=== PATIENT | female | born 1985 | race Caucasian/White ===

== ENCOUNTER 2017-08-14 11:49 | Inpatient (IN) | payer MEDICAID ==
[~2017-08-14] VITALS: Ht 154.9 cm; Wt 59.1 kg
[2017-08-14] MEDS ORDERED: AMIODARONE INJ 150 MG in DEXTROSE 5% IN WATER 100ML INJ 100 ML IV ONE ×2 (12:28)
[2017-08-14] MEDS ORDERED: AMIODARONE INJ 150 MG in DEXTROSE 5% IN WATER 100ML INJ 97 ML IV ONE ×2 (12:28)
[2017-08-14] MEDS ORDERED: ACETAMINOPHEN 325 MG TAB PO PRN (12:30)
[2017-08-14] MEDS ORDERED: LACTULOSE SYRUP 20 GM/30 ML CUP PO PRN (12:30)
[2017-08-14] MEDS ORDERED: SENNOSIDES 8.6 MG TAB PO PRN (12:30)
[2017-08-14] MEDS ORDERED: SODIUM CHLORIDE 0.9% FLUSH 10 ML FLUSH IV FLUSH PRN (12:30)
[2017-08-14] MEDS ORDERED: NALOXONE HCL 0.4 MG/ML AMP IV PUSH PRN (12:30)
[2017-08-14] MEDS ORDERED: BISACODYL 10 MG SUPP RECTAL PRN (12:30)
[2017-08-14] MEDS ORDERED: MAGNESIUM HYDROXIDE SUSP 30 ML CUP PO PRN (12:30)
[2017-08-14] MEDS ORDERED: AMIODARONE INJ 450 MG in DEXTROSE 5% IN WATE(EXCEL) INJ 241 ML IV PRN ×2 (12:38)
[2017-08-14] MEDS ORDERED: Vancomycin Consult Pharmacy 1 EA OTHER SCH (12:45)
[2017-08-14] MEDS ORDERED: VANCOMYCIN 1 GM/200 ML INJ 200 ML IV SCH (12:45)
[2017-08-14] MEDS: ENOXAPARIN SODIUM 40 MG/0.4 ML SYRINGE SQ SCH (13:00)
[2017-08-14 14:00] VITALS: BP 144/123; PULSE 51; RESP 20; TEMP 97.7; O2SAT 100
[2017-08-14] MEDS ORDERED: PROPOFOL 500 MG/50 ML INJ 50 ML ONE (14:10)
--- NOTE | 2017-08-14 14:19 | HHI.HP ---
[facility] No Primary Care Physician Admission Diagnosis Diagnoses: (1) V-tach Diagnosis: Principal (2) SIRS (systemic inflammatory response syndrome) Diagnosis: Principal (3) Intractable nausea and vomiting Diagnosis: Principal Chief Complaint: nausea, vomiting, palpitations Travel History International Travel<30 Days: No Contact w/Intl Traveler <30 Da: No Traveled to Known Affected Are: No Sepsis Criteria SIRS Criteria (2 or more): RR > 20 or PaCO2 < 32, WBC > 93283, < 4000 or > 10 % bands Severe Sepsis (+one): Lactate >2 Criteria Outcome: Meets SIRS criteria History of Present Illness Patient is a 31-year-old female with past medical history of GERD and history of Xanax use as a teenager, who presented to the ER with complaints of intractable nausea, palpitations or dizziness sounds without. Patient is found with increased QT interval and noted with V. tach while in the emergency room. She received a bolus of amiodarone. Patient instructed to the [facility] for further evaluation. Cardiology was contacted Dr. Rodriguez. The patient is still no associated, with dry heaves and she complains of severe epigastric pain. Epigastric pain is nonradiating. Denies having any chest pain or palpitations at this time. No fever or chills. No cough. Denies any suprapubic pain or urinary complaints. Says the only medication that she is taking his omeprazole [id number]-ltqivhu for GERD. However she stopped taking GERD medications 3 months ago. Past Family Social History Past Medical History GERD Past Surgical History Allergies: Coded Allergies: No Known Allergies (Unverified , 08/14/17) Family History Maternal grandmother with stroke Heart problems [place] paternal grandfather Social History Tobacco use Smoking half a pack to 1 pack a day since the age of 13 Marijuana use daily last use night, usually 3 x per day. Denies any other illicit drug use Occasional alcohol use, beer once in a while Physical Exam Physical Exam GENERAL: This is a well-nourished, well-developed patient, in no apparent distress. SKIN: No rashes, ecchymoses or lesions. Cool and dry. HEAD: Atraumatic. Normocephalic. No temporal or scalp tenderness. EYES: Pupils equal round and reactive. Extraocular motions intact. No scleral icterus. No injection or drainage. ENT: Nose without bleeding, purulent drainage or septal hematoma. Throat without erythema, tonsillar hypertrophy or exudate. Uvula midline. Airway patent. NECK: Trachea midline. No JVD or lymphadenopathy. Supple, nontender, no meningeal signs. CARDIOVASCULAR: Regular rate and rhythm without murmurs, gallops, or rubs. RESPIRATORY: Clear to auscultation. Breath sounds equal bilaterally. No wheezes , rales, or rhonchi. GASTROINTESTINAL: Abdomen soft, non-tender, nondistended. No hepato-splenomegaly , or palpable masses. No guarding. MUSCULOSKELETAL: Extremities without clubbing, cyanosis, or edema. No joint tenderness, effusion, or edema noted. No calf tenderness. Negative Homans sign bilaterally. NEUROLOGICAL: Awake and alert. Cranial nerves II through XII intact. Motor and sensory grossly within normal limits. Five out of 5 muscle strength in all muscle groups. Normal speech. Caprini VTE Risk Assessment Caprini VTE Risk Assessment: Mod/High Risk (score >= 2) Caprini Risk Assessment Model Point Value = 1 Point Value = 2 Point Value = 3 Point Value = 5 Age 41-60 Minor surgery BMI > 25 kg/m2 Swollen legs Varicose veins or History of unexplained or recurrent spontaneous Oral contraceptives or hormone replacement Sepsis (< 1 month) Serious lung disease, including pneumonia (< 1 month) Abnormal pulmonary function Acute myocardial infarction Congestive heart failure (< 1 month) History of inflammatory bowel disease Medical patient at bed rest Age 61-74 Arthroscopic surgery Major open surgery (> 45 min) Laparoscopic surgery (> 45 min) Malignancy Confined to bed (> 72 hours) Immobilizing plaster cast Central venous access Age >= 75 History of VTE Family history of VTE Factor V Leiden Prothrombin [id number] Lupus anticoagulant Anticardiolipin antibodies Elevated serum homocysteine Heparin-induced thrombocytopenia Other congenital or acquired thrombophilia Stroke (< 1 month) Elective arthroplasty Hip, pelvis, or leg fracture Acute spinal cord injury (< 1 month) Prophylaxis Regimen Total Risk Factor Score Risk Level Prophylaxis Regimen 0-1 Low Early ambulation 2 Moderate Order ONE of the following: *Sequential Compression Device (SCD) *Heparin 5000 units SQ BID 3-4 Higher Order ONE of the following medications: *Heparin 5000 units SQ TID *Enoxaparin/Lovenox 40 mg SQ daily (WT < 150 kg, CrCl > 30 mL/min) *Enoxaparin/Lovenox 30 mg SQ daily (WT < 150 kg, CrCl > 10-29 mL/min) *Enoxaparin/Lovenox 30 mg SQ BID (WT < 150 kg, CrCl > 30 mL/min) AND/OR *Sequential Compression Device (SCD) 5 or more Highest Order ONE of the following medications: *Heparin 5000 units SQ TID (Preferred with Epidurals) *Enoxaparin/Lovenox 40 mg SQ daily (WT < 150 kg, CrCl > 30 mL/min) *Enoxaparin/Lovenox 30 mg SQ daily (WT < 150 kg, CrCl > 10-29 mL/min) *Enoxaparin/Lovenox 30 mg SQ BID (WT < 150 kg, CrCl > 30 mL/min) AND *Sequential Compression Device (SCD) Assessment and Plan Problem List: (1) Intractable nausea and vomiting ICD Code: R11.2 - Nausea with vomiting, unspecified (2) SIRS (systemic inflammatory response syndrome) ICD Code: R65.10 - Systemic inflammatory response syndrome (SIRS) of non- infectious origin without acute organ dysfunction (3) V-tach ICD Code: I47.2 - Ventricular tachycardia Assessment and Plan 31-year-old female with Prolongation of QT/V. tach GERD Epigastric Abdominal pain Intractable nausea SIRS criteria on admission with leukocytosis, lactic acidosis, tachycardia Syncope Tobaccoism and marijuana use counselled. With history of depression as a teenager with use of Xanax and abuse of Xanax at that time. Received bolus of amiodarone while in the emergency room in [place]. Started on amiodarone drip Monitor on telemetry Admitted to CIC or ICU floor for close monitoring cloud consultant, Dr. Rodriguez. Consulting EP doctor Brooks for further evaluation Urine cultures, blood cultures are pending UA and chest x-ray reviewed and negative Monitor lactic acid per sepsis protocol Consult infectious disease for further recommendations Pain management Ativan for nausea as she would prolong QT interval and V. tach Consult dispensary attendant DVT ppx scd/teds/ Critical care time> 35 minutes Discussed Condition With Patient, nurse, family at bedside, ED physician, Dr Nguyen cardiology, Dr. Holm dispensary attendant Physician Certification 2 Midnight Certification Type: Admission for Inpatient Services Order for Inpatient Services The services are ordered in accordance with Medicare regulations or non- Medicare payer requirements, as applicable. In the case of services not specified as inpatient-only, they are appropriately provided as inpatient services in accordance with the 2-midnight benchmark. Estimated LOS (days): 3 days is the estimated time the patient will need to remain in the hospital, assuming treatment plan goals are met and no additional complications. Post-Hospital Plan: Home Yahaira Means MD Aug 14, 2017 14:19
[2017-08-14] MEDS: HYDROmorphone HCL PF 2 MG/ML VIAL IV PUSH PRN ×2 (14:32→20:21)
--- NOTE | 2017-08-14 14:46 | PD.ID.CON ---
History of Present Illness Service ID Consult Requested By Dr Means Reason for Consult leukocytosis Primary Care Physician No Primary Care Physician Diagnoses: History of Present Illness 31 yo patient presented with few days of constipation, abdominalm pain and on presentation was noed to have QT prolongation and torsades du pointes She reports exposure to C.diff thru family memeber (daughter), no abx exposure fore yrs Her WBC 20K, no fever No e/o UTI, PNA + bowell wall thickening on CT, but no other acute findings She also has evelvated lactate She was started on broad spectrum abx She uses MJ, denies other substance use Review of Systems Except as stated in HPI: all other systems reviewed are Neg Past Family Social History Allergies: Coded Allergies: No Known Allergies (Unverified , 08/14/17) Active Ordered Medications Medications where reviewed in EMR Antibiotics Include: zosyn vanco Physical Exam Physical Exam CONSTITUTIONAL/GENERAL: This is an adequately nourished patient, in no apparent distress. TUBES/LINES/DRAINS: SKIN: No jaundice, rashes, or lesions. . Skin temperature appropriate. Not diaphoretic. HEAD: Atraumatic. Normocephalic. EYES: Pupils equal and round and reactive. Extraocular motions intact. No scleral icterus. No injection or drainage. Fundi not examined. ENT: Hearing grossly normal. Nose without bleeding or purulent drainage. Throat without visible erythema, exudates, masses, or lesions. NECK: Trachea midline. Supple, nontender. CARDIOVASCULAR: Regular rate and rhythm without murmurs, gallops, or rubs. No JVD. Peripheral pulses symmetric. RESPIRATORY/CHEST: Symmetric, unlabored respirations. Clear to auscultation. Breath sounds equal bilaterally. No wheezes, rales, or rhonchi. GASTROINTESTINAL: Abdomen soft, mildly tender LUQ, nondistended. No hepato- splenomegaly, or palpable masses. No guarding. Bowel sounds present. GENITOURINARY: Without palpable bladder distension. MUSCULOSKELETAL: Extremities without clubbing, cyanosis, or edema. No joint tenderness or effusion noted. No calf tenderness. No mottling or clubbing. LYMPHATICS: No palpable cervical or supraclavicular adenopathy. NEUROLOGICAL: Awake and alert. Motor and sensory grossly within normal limits. Follows commands. Cognitively sharp. Moves all extremities. PSYCHIATRIC: No obvious anxiety/depression. no apparent hallucinations or other psychotic thought process. Laboratory Laboratory Tests Test 08/14/17 14:30 Imaging Last Impressions Head CT 08/14/17 0000 Signed Impressions: Service Date/Time: Monday, August 14, 2017 15:04 - CONCLUSION: Normal examination for a patient of this age. Gabe Delgado MD Assessment and Plan Assessment and Plan Ventricuklkar arrhythmia, TdP Lactic acidosis, ileus, leukocytosis and reported C.diff exposure with colitis on CT - clinical picture is suspicious for C.diff though colitis can be due to other pathology dc broad spectriumn abx start oral vanco chk stool for C.diff Discussed Condition With RN Gerri Sánchez MD Aug 14, 2017 14:46
[2017-08-14 14:52] LABS: PHOSPHORUS 1.1 MG/DL (2.5-4.9)
[2017-08-14 15:00] VITALS: BP 137/68
--- NOTE | 2017-08-14 15:14 | RADRPT ---
EXAM DATE/TIME: 08/14/2017 15:04 [place] COMPARISON: No previous studies available for comparison. INDICATIONS : Syncope. RADIATION DOSE: 56.41 CTDIvol (mGy) MEDICAL HISTORY : Seizures. GERD SURGICAL HISTORY : Appendectomy. ENCOUNTER: Initial ACUITY: 1 day PAIN SCALE: 0/10 LOCATION: cranial TECHNIQUE: Multiple contiguous axial images were obtained of the head. Using automated exposure control and adj ustment of the mA and/or kV according to patient size, radiation dose was kept as low as reasonably a chievable to obtain optimal diagnostic quality images. DICOM format image data is available electro nically for review and comparison. FINDINGS: CEREBRUM: The ventricles are normal for age. No evidence of midline shift, mass lesion, hemorrhage or acute in farction. No extra-axial fluid collections are seen. POSTERIOR FOSSA: The cerebellum and brainstem are intact. The 4th ventricle is midline. The cerebellopontine angle i s unremarkable. EXTRACRANIAL: The visualized portion of the orbits is intact. SKULL: The calvaria is intact. No evidence of skull fracture. CONCLUSION: Normal examination for a patient of this age. Gabe Delgado MD on August 14, 2017 at 15:11 Board Certified Radiologist. This report was verified electronically.
[2017-08-14] MEDS ORDERED: AMIODARONE INJ 450 MG in SODIUM CHLOR 0.9% (EXCEL) INJ 241 ML IV PRN (15:30)
[2017-08-14 16:00] VITALS: BP 133/72; PULSE 93; RESP 28; O2SAT 98
[2017-08-14] MEDS ORDERED: VANCOMYCIN INJ 1,250 MG in SODIUM CHLOR 0.9% 250 ML INJ 250 ML IV SCH (16:00)
[2017-08-14] MEDS ORDERED: POTASSIUM CHLORIDE 25 MEQ EFFERVESCENT TAB PO PRN (16:45)
[2017-08-14] MEDS ORDERED: POTASSIUM PHOSPHATE MONOBASIC 500 MG TAB PO PRN (16:45)
[2017-08-14] MEDS ORDERED: MAGNESIUM SULFATE INJ 2 GM in SODIUM CHLORIDE 0.9% INJ 96 ML IV PRN (16:45)
[2017-08-14] MEDS ORDERED: POTASSIUM PHOSPHATE INJ 30 MMOL in SODIUM CHLOR 0.9% 250 ML INJ 250 ML IV PRN (16:45)
[2017-08-14] MEDS ORDERED: POTASSIUM PHOSPHATE MONOBASIC 500 MG TAB PO/TUBE PRN (16:45)
[2017-08-14] MEDS ORDERED: MAGNESIUM OXIDE 400 MG TAB PO PRN (16:45)
[2017-08-14] MEDS ORDERED: MAGNESIUM SULFATE INJ 4 GM in SODIUM CHLORIDE 0.9% INJ 92 ML IV PRN (16:45)
[2017-08-14] MEDS ORDERED: POTASSIUM CHLOR 20 MEQ PREMIX 100 ML IV PRN ×2 (16:45)
[2017-08-14] MEDS ORDERED: SODIUM PHOSPHATE INJ 30 MMOL in SODIUM CHLOR 0.9% 250 ML INJ 250 ML IV ONE (16:45)
[2017-08-14] MEDS ORDERED: SODIUM PHOSPHATE INJ 30 MMOL in SODIUM CHLOR 0.9% 250 ML INJ 240 ML IV PRN (16:45)
[2017-08-14] MEDS ORDERED: POTASSIUM CHLOR 40 MEQ PREMIX 100 ML IV PRN ×2 (16:45)
[2017-08-14 17:00] VITALS: BP 114/98; PULSE 85; RESP 28; O2SAT 98
--- NOTE | 2017-08-14 17:16 | HHI.PR ---
Addendum to Inpatient Note Additional Information Pt seen around 1430 today full note to follow 31 yo admitted for TDP + abd pain/ ileus/ C.diff exposure thru family memeber (daughter), no abx exposure fore yrs WBC 20K No e/o UTI, PNA + bowell wall thickening on CT dc broad spectriumn abx start oral vanco chk stool for C.diff Gerri Perez MD Aug 14, 2017 17:16
[2017-08-14] MEDS: VANCOMYCIN 500 MG VIAL (FOR ORAL USE ONLY) PO SCH ×2 (17:40→21:28)
[2017-08-14] MEDS ORDERED: PIPERACIL-TAZO 4.5 GM PREMIX 100 ML IV SCH (18:00)
[2017-08-14] MEDS ORDERED: ONDANSETRON HCL 4 MG/2 ML VIAL IV PUSH ONE (19:15)
[2017-08-14] MEDS: SODIUM CHLORIDE 0.9% FLUSH 10 ML FLUSH IV FLUSH SCH (19:34)
[2017-08-14] MEDS: DOCUSATE SODIUM 50 MG/SENNA 8.6 MG TAB PO SCH (19:34)
[2017-08-14 20:00] VITALS: BP 106/60; PULSE 69; RESP 30; TEMP 99; O2SAT 96
--- NOTE | 2017-08-14 20:28 | PD.CONS ---
[facility] Service Critical Care Medicine Consult Requested By Dr. Means Reason for Consult management of Torsades Primary Care Physician No Primary Care Physician History of Present Illness This a 31yF with a history of intractable nausea which she states has been a daily occurrance with vomiting at least 3 times a day for 8 years (since her youngest daughter was born). She presents with new-onset epigastric pain along with nausea and vomiting. She states the vomiting has been getting worse and the pain is also worse. She denies diarrhea. denies association with food. Also endorses having syncopal episodes a few times an hour over the last day. she presented to [place] [facility] and was found to have intermittent polymorphic V. Tach with these syncopal episodes. she was given iv magnesium and started on amiodarone in the ER and is transferred to the ICU for further management. Of note, the patient states the only alleviating factor over the last few months for her intractable nausea is a hot bath or shower which she now takes 2 or 3 times a day to relieve her symptoms. In the ER, her electrolytes were wnl. she had a leukocytosis to 20k, a lactate 3.5. trop negative. HCG negative. Cardiology evaluated her and consulted Dr. Brooks with electrophysiology to [facility]. The patient complains of pain as well as nausea and vomiting, and the syncope, but no other symptoms. no other neuro symptoms, including dizziness, fatigue, photophobia. She has been taking over the counter anti-nausea meds and reported taking an enema to help with constipation. denies any other meds. endorses daily marijuana use x 8 years, at least once a day and sometimes more. Review of Systems Constitutional: DENIES: Diaphoretic episodes, Fatigue, Fever, Chills, Night Sweats Endocrine: DENIES: Heat/cold intolerance Eyes: DENIES: Blurred vision, Diplopia, Eye pain, Vision loss, Photosensitivity , Double Vision Ears, nose, mouth, throat: DENIES: Hearing loss, Vertigo, Throat pain, Running Nose, Epistaxis Respiratory: DENIES: Apneas, Cough, Snoring, Wheezing, Hemoptysis, Sputum production, Shortness of breath Cardiovascular: COMPLAINS OF: Syncope, DENIES: Chest pain, Palpitations, Dyspnea on Exertion, PND, Lower Extremity Edema, Orthopnea, Claudication Gastrointestinal: COMPLAINS OF: Abdominal pain, Nausea, Vomiting, DENIES: Black stools, Bloody stools, Constipation, Diarrhea Musculoskeletal: DENIES: Muscle aches, Joint Swelling, Back pain Hematologic/lymphatic: DENIES: Bruising Neurologic: DENIES: Headache, Localized weakness, Paresthesias, Seizures Psychiatric: DENIES: Anxiety, Confusion Past Family Social History Allergies: Coded Allergies: No Known Allergies (Unverified , 08/14/17) Past Medical History GERD intractable nausea/vomiting x 8 years since her youngest daughter was born (self -medicated, never sought medical attention) Past Surgical History appendectomy Reported Medications none. takes over the counter nausea medicine took OTC enema x 1 yesterday (unknown brand or type) Active Ordered Medications See MAR Family History Maternal grandmother with stroke Heart problems [place] paternal grandfather both > 70 yrs old. Social History Tobacco use Smoking half a pack to 1 pack a day since the age of 13 Marijuana use daily, once or more per day x at least 10 years. Physical Exam Vital Signs Vital Signs Date Time Temp Pulse Resp B/P (MAP) Pulse Ox O2 Delivery O2 Flow Rate FiO2 08/14/17 20:00 99.0 69 30 106/60 (75) 96 08/14/17 20:00 69 08/14/17 17:00 85 28 114/98 (103) 98 08/14/17 16:00 93 08/14/17 16:00 93 28 133/72 (92) 98 08/14/17 15:00 137/68 (91) 08/14/17 14:00 97.7 51 20 144/123 (130) 100 08/14/17 14:00 51 Physical Exam GENERAL: Young female, lying in bed, in severe distress, dry heaving during exam HEENT: Normocephalic. Atraumatic. Pupils equal, round, reactive, conjugate. Mucous membranes are dry NECK: Trachea is midline. There is no JVD. CHEST: Equal chest rise. On room air. SPO2 100% CARDIOVASCULAR: Normal rate, regular rhythm. Sinus by telemetry during my exam ABDOMEN: Soft, tender in the epigastrium. No rebound. No guarding. No perineal irritation. Negative heel tap. Nondistended. MUSCULOSKELETAL: Pulses 2+. No peripheral edema. NEUROLOGICAL: Patient had 3 episodes of syncope while I was evaluating her. These were not associated with any changes on the EKG. The remainder the patient's neurologic exam is normal. These syncopal episodes lasted for less than 15 seconds, and the patient startled herself awake and began talking again. During that time there is no rhythmic movements to suggest ictal activity. Laboratory Laboratory Tests Test 08/14/17 14:30 Phosphorus Level 1.1 Troponin I LESS THAN 0.02 Lipase 111 Imaging Last Impressions Head CT 08/14/17 0000 Signed Impressions: Service Date/Time: Monday, August 14, 2017 15:04 - CONCLUSION: Normal examination for a patient of this age. Gabe Delgado MD Assessment and Plan Assessment and Plan Assessment: 31-year-old female with chronic long-standing history of nausea and vomiting times at least 8 years who presents with worsening epigastric pain and in the emergency department was found to have intermittent torsades. She is now in sinus rhythm, although her nausea persists. Her clinical story is very suggestive of cyclical vomiting syndrome secondary to chronic marijuana use. It is possible that her chronic nausea and vomiting his lead to allegedly abnormalities and dehydration which could lead to torsades. It is also possibility that her odta-glf-paqhzmy antinausea medicine contains a QT prolonging agent which could further worsen torsades. I agree with a electrophysiology consultation. In addition we will consult GI to help with her diagnosis of chronic nausea and vomiting. Unfortunately, it is very difficult to control her nausea as almost all antinausea meds are correct QT prolonging agents. We will stick with Ativan IV and if needed very small doses of Zofran in a monitored setting under telemetry. Agree with admitting to ICU and we will monitor closely. Unclear what the single episode from, but they do not appear to be neurologic in origin. We'll get EEG to see if it correlates with any ictal activity. We'll get neurology input as well. Polymorphic V. Tach - mgso4 - daily electrolytes - ivf - EP consultation - cardiology consultation - telemetry - avoid QT prolonging agents Chronic intractable nausea/vomiting with acute abdominal pain - consult GI - ativan prn for nausea - very judicious use of zofran iv prn - most anti-emetics are QT prolonging. until EP evaluates, will hold on further anti-emetics. - possible cyclical vomiting syndrome secondary to chronic marijuana use. Syncopal Episodes - appears to be more psychogenic in origin - some of these correlate with torsades (organic etiology), but a number of these episodes last < 15 seconds and do not correlate - EEG - neuro consult - may need psych consult if no other etiology is found Agree with admitting to ICU. will closely monitor. Camilo Stover MD Aug 14, 2017 20:28
[2017-08-14 22:00] VITALS: PULSE 56
[2017-08-15] VITALS (16 sets, daily range): BP systolic 109–136; BP diastolic 59–93; PULSE 53–94; RESP 19–40; TEMP 98–99; O2SAT 97–99
[2017-08-15] MEDS: HYDROmorphone HCL PF 2 MG/ML VIAL IV PUSH PRN ×3 (03:52→20:15)
[2017-08-15] MEDS: VANCOMYCIN 500 MG VIAL (FOR ORAL USE ONLY) PO SCH ×4 (03:52→20:16)
[2017-08-15] MEDS: DOCUSATE SODIUM 50 MG/SENNA 8.6 MG TAB PO SCH ×2 (07:46→20:14)
--- NOTE | 2017-08-15 09:06 | MB ---
cc: SONIA STINSON M.D. DATE OF CONSULTATION: 08/14/2017. REASON FOR CONSULTATION: Electrophysiology consult for ventricular tachycardia. HISTORY OF PRESENT ILLNESS: Mrs. Dowd is a 31-year-old female with no history of family with sudden . She smokes a pack of cigarettes a day for the past 18 years. She uses marijuana occasionally. She drinks a beer occasionally. She was having constipation. She decided to take some laxative last night and drank a lot of water. She woke up in the middle of the night with dry heaves. This morning around 7:00, she called a neighbor and decided to come to the emergency room. During hospitalization, she was having dizziness and near syncope. Telemetry showed episodes of wide complex tachyarrhythmia, possible torsades. Subsequently she was transferred to this center. She was put on telemetry. Electrolyte replacement was initiated. I was consulted for evaluation and management. The chart was reviewed. The patient was evaluated. ALLERGIES: NONE. SOCIAL HISTORY: As mentioned before, she has smoked a pack of cigarettes a day for the past thirteen years. FAMILY HISTORY: Noncontributory to her current medical condition. MEDICATIONS: At home she was on no medications. Currently she is on: 1. Potassium. 2. She is on phosphorus. 3. She is on magnesium. 4. Vancomycin was initiated. 5. She is on amiodarone if necessary. 6. Lovenox 40 milligrams subcutaneous was given. REVIEW OF SYSTEMS: Currently she refers feeling better. She had abdominal pain that was worse than by her own account than when she was in labor for seven hours. No vomiting currently. No fever. PHYSICAL EXAMINATION: GENERAL: Alert, fully oriented, pleasant in bed. VITAL SIGNS: Her blood pressure is 114/98, pulse 85, respiratory rate 18. LUNGS: Ventilated. CARDIOVASCULAR: S1-S2. Regular. ABDOMEN: Abdomen soft, no mass. No bruits. No pain on palpation. EXTREMITIES: No edema. EKGS: Electrocardiogram is not available. Telemetry shows sinus rhythm. LABS: Hemoglobin is 15.1, white blood cells 20. Potassium is 3.7, creatinine 1.1, magnesium is 1.7. Troponin less than 0.02. TSH is 2.79. INR 1.1. ASSESSMENT AND RECOMMENDATIONS: Mrs. Dowd refers multiple episodes of dizziness and syncope. There were short bursts of wide complex tachyarrhythmia. Her Q-T is around 460. There is no family history of coronary artery disease. There is no family history of sudden . The issue may be more because of her electrolyte imbalance than intrinsic to the heart. At this point, my recommendation is to continue observation. She will need an echocardiogram to evaluate wall motion and valvular function. If there is an episodes of torsades during this weekend, then I will consider a device. If not, the recommendation is an electrophysiology study Thursday morning or afternoon. The case was extensively discussed with her. I will closely monitor her during the hospitalization. Sonia Stinson MD /[place] /6:06 PM /8:39 AM
[2017-08-15] MEDS ORDERED: ALUMINUM/MAGNESIUM/SIMETH 30 ML CUP PO ONE (09:15)
[2017-08-15] MEDS ORDERED: LIDOCAINE VISCOUS 2% SOLN 15 ML UDC PO ONE (09:15)
--- NOTE | 2017-08-15 09:15 | HHI.CCPN ---
Subjective Remarks/Hospital Course Hospital Course: This a 31yF with a history of intractable nausea which she states has been a daily occurrance with vomiting at least 3 times a day for 8 years (since her youngest daughter was born). She presents with new-onset epigastric pain along with nausea and vomiting. She states the vomiting has been getting worse and the pain is also worse. She denies diarrhea. denies association with food. Also endorses having syncopal episodes a few times an hour over the last day. she presented to [place] [facility] and was found to have intermittent polymorphic V. Tach with these syncopal episodes. she was given iv magnesium and started on amiodarone in the ER and is transferred to the ICU for further management. Of note, the patient states the only alleviating factor over the last few months for her intractable nausea is a hot bath or shower which she now takes 2 or 3 times a day to relieve her symptoms. In the ER, her electrolytes were wnl. she had a leukocytosis to 20k, a lactate 3.5. trop negative. HCG negative. Cardiology evaluated her and consulted Dr. Brooks with electrophysiology to [facility]. The patient complains of pain as well as nausea and vomiting, and the syncope, but no other symptoms. no other neuro symptoms, including dizziness, fatigue, photophobia. She has been taking over the counter anti-nausea meds and reported taking an enema to help with constipation. denies any other meds. endorses daily marijuana use x 8 years, at least once a day and sometimes more. Subjective: 08/15: tearful on exam today. still complains of epigastric pain. nausea has improved. no episodes of arrhythmias overnight. states she wanted to leave AMA because she feels her concerns are not being addressed. ROS unchanged from yesterday. she does state that dilaudid improves her pain, but she does not want to take it because it makes her sleep. Objective Vital Signs Date Time Temp Pulse Resp B/P (MAP) Pulse Ox O2 Delivery O2 Flow Rate FiO2 08/15/17 07:49 99 Nasal Cannula 1.00 08/15/17 06:00 60 08/15/17 04:00 98.3 19 125/88 (100) Intake and Output 08/15/17 08/15/17 08/15/17 07:59 15:59 23:59 Output Total 550 ml Balance -550 ml Imaging Last Impressions Head CT 08/14/17 0000 Signed Impressions: Service Date/Time: Monday, August 14, 2017 15:04 - CONCLUSION: Normal examination for a patient of this age. Gabe Delgado MD Objective Remarks GENERAL: Young female, lying in bed, tearful. HEENT: Normocephalic. Atraumatic. Pupils equal, round, reactive, conjugate. Mucous membranes are moist NECK: Trachea is midline. There is no JVD. CHEST: Equal chest rise. On room air. SPO2 100% CARDIOVASCULAR: Normal rate, regular rhythm. Sinus by telemetry during my exam ABDOMEN: Soft, tender in the epigastrium. No rebound. No guarding. No perineal irritation. Negative heel tap. Nondistended. MUSCULOSKELETAL: Pulses 2+. No peripheral edema. NEUROLOGICAL: neuro intact on my exam today. no focal deficits. follows commands. tearful. A/P Assessment and Plan Assessment: 31-year-old female with chronic long-standing history of nausea and vomiting times at least 8 years who presents with worsening epigastric pain and in the emergency department was found to have intermittent torsades. Nausea is better. epigastric pain persists, and today she says this is worse with swallowing. this may be esophagitis from chronic vomiting. will order GI cocktail and see if this improves her symtpoms. GI to see today as well and provide additional recommendations. I had a lengthy discussion with the patient where I addressed all of her concerns at length and assured her that we consider her abdominal symptoms to be important to us and we are working these up, but also prioritize her ventricular dysrhythmias as of most importance right now. from a torsades standpoint, her electrolytes remain wnl and she has had no episodes of dysrhythmias since in the ICU. will transition to step-down cardiac telemetry unit and continue ongoing medical work-up there. will consult hospitalist group for ongoing management. Polymorphic V. Tach - mgso4 - daily electrolytes - ivf - EP consultation - cardiology consultation - telemetry - avoid QT prolonging agents Chronic intractable nausea/vomiting with acute abdominal pain Epigastric pain, possible esophagitis - consult GI - ativan prn for nausea - very judicious use of zofran iv prn - most anti-emetics are QT prolonging. until EP evaluates, will hold on further anti-emetics. - possible cyclical vomiting syndrome secondary to chronic marijuana use. - GI cocktail today. continue prn dilaudid. Syncopal Episodes - appears to be more psychogenic in origin - some of these correlate with torsades (organic etiology), but a number of these episodes last < 15 seconds and do not correlate - EEG - neuro consult - may need psych consult if no other etiology is found transfer out of ICU today. Camilo Stover MD Aug 15, 2017 09:15
[2017-08-15] MEDS: SODIUM CHLORIDE 0.9% FLUSH 10 ML FLUSH IV FLUSH SCH ×2 (12:18→20:17)
--- NOTE | 2017-08-15 12:24 | MB ---
cc: BRIGHT JONES M.D. DATE OF CONSULTATION: 08/15/2017. REASON FOR CONSULTATION: She is seen in neurological consultation. HISTORY OF PRESENT ILLNESS: She is a 31-year-old woman seen because of syncope. It appears that she might have had a few syncopal episodes yesterday. She does not remember anything about it. She was at home with nausea and some vomiting and upper abdominal pain. She says her daughter found her on the floor in the kitchen and called a neighbor. She was noted to have a prolonged Q-T interval with ventricular tachycardia in the emergency room. She was transferred to the intensive care unit for further cardiology evaluation. There is a long history of nausea and vomiting, daily for the past nine years. She admits to remote seizures, many years ago, and she says she took Depakote for that. She has not been taking any medications for nine years. She admits to smoking daily and drinks alcohol occasionally. EXAMINATION: She is obviously very emotional. She is alert, oriented and initially was pleasant and cooperative but towards the mid to the end of the exam, she actually asking me to depart as she just wanted to go home. She says she is fine and has no need for additional medical care. Her reflexes were brisk but symmetrical. Ocular movements and visual dawkins probably full but at that time she was no longer cooperating for the exam. She moved all four extremities strongly on the bedside exam. She seemed to become nauseated and upset as I was doing her muscle stretch reflexes and that is when she became irritated and asked me to finish the evaluation. I did discuss this with the nurse. I have looked at the hospital data. She had a CT brain yesterday which was normal. I believe an EEG was done and I read it as normal but the report is not in the chart. ASSESSMENT: 1. Syncopal episodes. 2. Emotional / anxiety disorder. 3. Remote history of seizures, she has been off medications, namely valproic acid, for many years. 4. Abdominal pain, nausea, vomiting. 5. Cardiac arrhythmia yesterday. Neurologic-[facility] at this point, no other intervention but if she has any recurrence of neurologic symptoms, especially while she is monitored heart-under[place] in the hospital then I shall reevaluate her and will consider repeat EEG, MRI, et cetera. Thank you for asking us to assist in her care. MD WILLARD Bennett/KAMILLE /8:49 AM /12:08 PM
--- NOTE | 2017-08-15 12:34 | PD.CARD.PN ---
Subjective Subjective Remarks Doing well No further tachyarrhythmias noted Objective Medications Current Medications Medications (Trade) Dose Ordered Sig/Maday Route Start Time Stop Time Status Last Admin (NS Flush) 2 ml UNSCH PRN IV FLUSH 08/14/17 12:30 (NS Flush) 2 ml BID IV FLUSH 08/14/17 21:00 08/15/17 12:18 (Tylenol) 650 mg Q4H PRN PO 08/14/17 12:30 (Lovenox Inj) 40 mg Q24H SQ 08/14/17 13:00 (Narcan Inj) 0.4 mg UNSCH PRN IV PUSH 08/14/17 12:30 (Helen-Colace) 1 tab BID PO 08/14/17 21:00 (Milk Of Magnesia Liq) 30 ml Q12H PRN PO 08/14/17 12:30 (Senokot) 17.2 mg Q12H PRN PO 08/14/17 12:30 (Dulcolax Supp) 10 mg DAILY PRN RECTAL 08/14/17 12:30 (Lactulose Liq) 30 ml DAILY PRN PO 08/14/17 12:30 (Dilaudid Pf Inj) 0.5 mg Q4H PRN IV PUSH 08/14/17 14:15 08/15/17 09:50 Amiodarone HCl 450 mg/Sodium Chloride 250 ml @ 33.33 mls/ hr Q7H31M PRN IV 08/14/17 15:30 (VANCOMYCIN for oral use only) 125 mg Q6H PO 08/14/17 16:00 08/15/17 12:18 Potassium Chloride 100 ml @ 50 mls/hr Q2H PRN IV 08/14/17 16:45 Potassium Chloride 100 ml @ 50 mls/hr Q2H PRN IV 08/14/17 16:45 (K-Lyte Cl Eff) 50 meq UNSCH PRN PO 08/14/17 16:45 Potassium Chloride 100 ml @ 25 mls/hr UNSCH PRN IV 08/14/17 16:45 Potassium Chloride 100 ml @ 50 mls/hr Q2H PRN IV 08/14/17 16:45 Magnesium Sulfate 4 gm/Sodium Chloride 100 ml @ 50 mls/hr UNSCH PRN IV 08/14/17 16:45 (Mag-Ox) 800 mg UNSCH PRN PO 08/14/17 16:45 Magnesium Sulfate 2 gm/Sodium Chloride 100 ml @ 50 mls/hr UNSCH PRN IV 08/14/17 16:45 (K-Phos) 2,000 mg Q4H PRN PO 08/14/17 16:45 Sodium Phosphate 30 mmol/Sodium Chloride 250 ml @ 42 mls/hr UNSCH PRN IV 08/14/17 16:45 (K-Phos) 2,000 mg UNSCH PRN PO/TUBE 08/14/17 16:45 Potassium Phosphate 30 mmol/ Sodium Chloride 260 ml @ 42 mls/hr UNSCH PRN IV 08/14/17 16:45 Vital Signs / I&O Vital Signs Date Time Temp Pulse Resp B/P (MAP) Pulse Ox O2 Delivery O2 Flow Rate FiO2 08/15/17 10:00 71 08/15/17 08:00 98.0 77 40 114/59 (77) 98 08/15/17 08:00 77 08/15/17 07:49 99 Nasal Cannula 1.00 08/15/17 06:00 60 08/15/17 04:00 94 08/15/17 04:00 98.3 94 19 125/88 (100) 98 08/15/17 02:00 67 08/15/17 00:11 97 Nasal Cannula 2.00 08/15/17 00:00 99.0 56 20 109/65 (80) 97 08/15/17 00:00 56 08/14/17 22:00 56 08/14/17 20:00 99.0 69 30 106/60 (75) 96 08/14/17 20:00 69 08/14/17 17:00 85 28 114/98 (103) 98 08/14/17 16:00 93 08/14/17 16:00 93 28 133/72 (92) 98 08/14/17 15:00 137/68 (91) 08/14/17 14:00 97.7 51 20 144/123 (130) 100 08/14/17 14:00 51 I/O 08/14/17 08/14/17 08/14/17 08/15/17 08/15/17 08/15/17 07:00 15:00 23:00 07:00 15:00 23:00 Intake Total 250 ml Output Total 550 ml Balance -300 ml Intake IV Total 250 ml Output Urine Total 550 ml # Voids 1 3 Physical Exam GENERAL: NAD, AAOx3 SKIN: Warm and dry. HEAD: Atraumatic. Normocephalic. EYES: Pupils equal and round. No scleral icterus. No injection or drainage. ENT: No nasal bleeding or discharge. Mucous membranes pink and moist. NECK: Trachea midline. No JVD. CARDIOVASCULAR: Regular rate and rhythm. RESPIRATORY: No accessory muscle use. Clear to auscultation. Breath sounds equal bilaterally. GASTROINTESTINAL: Abdomen soft, non-tender, nondistended. Hepatic and splenic margins not palpable. MUSCULOSKELETAL: Extremities without clubbing, cyanosis, or edema. No obvious deformities. NEUROLOGICAL: Awake and alert. No obvious cranial nerve deficits. Motor grossly within normal limits. Five out of 5 muscle strength in the arms and legs. Normal speech. PSYCHIATRIC: Appropriate mood and affect; insight and judgment normal. Laboratory Laboratory Tests Test 08/14/17 14:30 Phosphorus Level 1.1 MG/DL Troponin I LESS THAN 0.02 NG/ML Lipase 111 U/L Assessment and Plan Problem List: (1) V-tach ICD Codes: I47.2 - Ventricular tachycardia (2) SIRS (systemic inflammatory response syndrome) ICD Codes: R65.10 - Systemic inflammatory response syndrome (SIRS) of non- infectious origin without acute organ dysfunction (3) Intractable nausea and vomiting ICD Codes: R11.2 - Nausea with vomiting, unspecified Assessment and Plan 1) No further episodes of VT Con't to monitor on telemetry If further episodes then possible ICD on Thursday, if not then possible EP study on Thursday 2) Nausea/Emesis Chronic issue per the patient 3) Keep electrolytes repleted Sunday Rodriguez DO Aug 15, 2017 12:34
[2017-08-15] MEDS: ENOXAPARIN SODIUM 40 MG/0.4 ML SYRINGE SQ SCH (13:00)
--- NOTE | 2017-08-15 13:40 | EKG ---
Date Performed: 08/14/2017 Time Performed: 18:21:53 PTAGE: 31 years EKG: Sinus rhythm NONSPECIFIC T-WAVE ABNORMALITY Since the prior tracing, there has been no significant change BORDERL INE ECG PREVIOUS TRACING : 08/14/2017 @ 1148 DOCTOR: Hong Carr Interpretating Date/Time 08/15/2017 13:38:29
--- NOTE | 2017-08-15 14:24 | MG ---
cc: BRIGHT JONES M.D. Lab No: Date: 08/15/2017 Age: 31 Sex: F Race: An EEG was obtained on this 31-year-old patient being evaluated for syncope. This EEG is showing intermittent left temporal sharp discharge. These discharges are associated with some slower rhythms on the left. At times there is some extension into all the right hemisphere but they are predominantly on the left. There is awake and asleep. There are beta rhythms diffusely and there is alpha activity posteriorly. Hyperventilation was not performed. Photic stimulation was unremarkable. INTERPRETATION Abnormal EEG because of frequent the left temporal sharp discharges some associated slowing. These discharges have an epileptiform appearance. No ictal pattern. Clinical and imaging correlation. MD WILLARD Bennett/matt /11:57 AM /2:09 PM
[2017-08-15] MEDS ORDERED: GADODIAMIDE PF 287 MG/ML 10 ML VIAL (for RAD MRI) IVCONTRAST ONE (15:53)
[2017-08-15] MEDS ORDERED: LACOSAMIDE INJ 200 MG in SODIUM CHLORIDE 0.9% INJ 100 ML IV ONE (16:00)
--- NOTE | 2017-08-15 16:14 | RADRPT ---
EXAM DATE/TIME: 08/15/2017 15:23 [place] COMPARISON: No previous studies available for comparison. INDICATIONS : Dizziness. Abnormal EEG. CONTRAST: 10 cc Omniscan (gadodiamide) IV MEDICAL HISTORY : None. SURGICAL HISTORY : Appendectomy. section. ENCOUNTER: Initial ACUITY: 1 day PAIN SCORE: 0/10 LOCATION: cranial TECHNIQUE: Multiplanar, multisequence MRI of the brain was performed both prior to and following the administrat ion of paramagnetic contrast. FINDINGS: CEREBRUM: The ventricles are normal for age. No evidence of midline shift, mass lesion, hemorrhage or acute in farction. No extraaxial fluid collections are seen. The pituitary gland and suprasellar cistern are normal in configuration. WHITE MATTER: No significant signal abnormalities are seen in the white matter. POSTERIOR FOSSA: The cerebellum and brainstem are intact. The 4th ventricle is midline. The cerebellopontine angle is unremarkable. The cerebellar tonsils are normal in position. DIFFUSION IMAGING: No focal areas of restricted diffusion are seen. No evidence of acute infarction. EXTRACRANIAL: The visualized portions of the orbits and paranasal sinuses are unremarkable. POST-CONTRAST: No abnormal areas of parenchymal or dural enhancement. No evidence of blood-brain barrier breakdown. CONCLUSION: No acute intracranial findings. Jose Preston MD on August 15, 2017 at 16:08 Board Certified Radiologist. This report was verified electronically.
[2017-08-15 17:23] LABS: AUTOMATED NEUTROPHIL # 8.7 TH/MM3 (1.8-7.7); BASOPHIL # 0.1 TH/MM3 (0-0.2); BASOPHIL % 0.5 % (0.0-2.0); EOSINOPHIL % 0.3 % (0.0-4.0); HEMATOCRIT 38.7 % (35.0-46.0); HEMOGLOBIN 13.1 GM/DL (11.6-15.3); MEAN CELL VOLUME 89.8 FL (80.0-100.0); MEAN CORPUSCULAR HEMOGLOBIN 30.5 PG (27.0-34.0); MEAN CORPUSCULAR HGB CONC 33.9 % (32.0-36.0); MEAN PLATELET VOLUME 7.8 FL (7.0-11.0); MONO % 5.9 % (0.0-8.0); MONOCYTE # 0.7 TH/MM3 (0-0.9); NEUT % 69.3 % (16.0-70.0); PLATELET COUNT 314 TH/MM3 (150-450); RED CELL DISTRIBUTION WIDTH 13.8 % (11.6-17.2); WHITE BLOOD COUNT 12.5 TH/MM3 (4.0-11.0)
[2017-08-15 17:49] LABS: BICARBONATE 20.5 MEQ/L (21.0-32.0); BLOOD UREA NITROGEN 11 MG/DL (7-18); CALCIUM 8.4 MG/DL (8.5-10.1); CHLORIDE 108 MEQ/L (98-107); CREATININE 0.71 MG/DL (0.50-1.00); GLOMERULAR FILTRATION RATE 96 ML/MIN (>89); GLUCOSE,RANDOM 80 MG/DL (74-106); MAGNESIUM 2.4 MG/DL (1.5-2.5); PHOSPHORUS 1.2 MG/DL (2.5-4.9); SODIUM (NA) 138 MEQ/L (136-145)
[2017-08-15 17:52] LABS: TROPONIN I LESS THAN 0.02 NG/ML (0.02-0.05)
--- NOTE | 2017-08-15 18:29 | HHI.IDPN ---
Subjective Subjective Remarks co primarily epigastric pain no diarrhea no fever WBC went down to 12 Antibiotics vanco po Allergies: Coded Allergies: No Known Allergies (Unverified , 08/14/17) Objective . Vital Signs Date Time Temp Pulse Resp B/P (MAP) Pulse Ox O2 Delivery O2 Flow Rate FiO2 08/15/17 14:00 73 08/15/17 12:00 70 08/15/17 12:00 98.3 70 22 122/78 (93) 97 08/15/17 10:00 71 08/15/17 08:00 98.0 77 40 114/59 (77) 98 08/15/17 08:00 77 08/15/17 07:49 99 Nasal Cannula 1.00 08/15/17 06:00 60 08/15/17 04:00 94 08/15/17 04:00 98.3 94 19 125/88 (100) 98 08/15/17 02:00 67 08/15/17 00:11 97 Nasal Cannula 2.00 08/15/17 00:00 99.0 56 20 109/65 (80) 97 08/15/17 00:00 56 08/14/17 22:00 56 08/14/17 20:00 99.0 69 30 106/60 (75) 96 08/14/17 20:00 69 . Laboratory Tests Test 08/15/17 16:44 White Blood Count 12.5 TH/MM3 Red Blood Count 4.30 MIL/MM3 Hemoglobin 13.1 GM/DL Hematocrit 38.7 % Mean Corpuscular Volume 89.8 FL Mean Corpuscular Hemoglobin 30.5 PG Mean Corpuscular Hemoglobin Concent 33.9 % Red Cell Distribution Width 13.8 % Platelet Count 314 TH/MM3 Mean Platelet Volume 7.8 FL Neutrophils (%) (Auto) 69.3 % Lymphocytes (%) (Auto) 24.0 % Monocytes (%) (Auto) 5.9 % Eosinophils (%) (Auto) 0.3 % Basophils (%) (Auto) 0.5 % Neutrophils # (Auto) 8.7 TH/MM3 Lymphocytes # (Auto) 3.0 TH/MM3 Monocytes # (Auto) 0.7 TH/MM3 Eosinophils # (Auto) 0.0 TH/MM3 Basophils # (Auto) 0.1 TH/MM3 CBC Comment DIFF FINAL Differential Comment Laboratory Tests Test 08/14/17 14:30 08/15/17 16:44 Phosphorus Level 1.1 MG/DL 1.2 MG/DL Troponin I LESS THAN 0.02 NG/ML LESS THAN 0.02 NG/ML Lipase 111 U/L Blood Urea Nitrogen 11 MG/DL Creatinine 0.71 MG/DL Random Glucose 80 MG/DL Calcium Level 8.4 MG/DL Magnesium Level 2.4 MG/DL Sodium Level 138 MEQ/L Potassium Level 3.3 MEQ/L Chloride Level 108 MEQ/L Carbon Dioxide Level 20.5 MEQ/L Anion Gap 10 MEQ/L Estimat Glomerular Filtration Rate 96 ML/MIN Imaging Last Impressions Brain MRI 08/15/17 0000 Signed Impressions: Service Date/Time: Tuesday, August 15, 2017 15:23 - CONCLUSION: No acute intracranial findings. Jose Preston MD Head CT 08/14/17 0000 Signed Impressions: Service Date/Time: Monday, August 14, 2017 15:04 - CONCLUSION: Normal examination for a patient of this age. Gabe Delgado MD Physical Exam CONSTITUTIONAL/GENERAL: This is an adequately nourished patient, in no apparent distress. TUBES/LINES/DRAINS: SKIN: No jaundice, rashes, or lesions. . Skin temperature appropriate. Not diaphoretic. CARDIOVASCULAR: Regular rate and rhythm without murmurs, gallops, or rubs. No JVD. Peripheral pulses symmetric. RESPIRATORY/CHEST: Symmetric, unlabored respirations. Clear to auscultation. Breath sounds equal bilaterally. No wheezes, rales, or rhonchi. GASTROINTESTINAL: Abdomen soft, quite tender epigastrium nondistended. No hepato-splenomegaly, or palpable masses. No guarding. Bowel sounds present. MUSCULOSKELETAL: Extremities without clubbing, cyanosis, or edema. No joint tenderness or effusion noted. No calf tenderness. No mottling or clubbing. NEUROLOGICAL: Awake and alert. Motor and sensory grossly within normal limits. Follows commands. Cognitively sharp. Moves all extremities. PSYCHIATRIC: No obvious anxiety/depression. no apparent hallucinations or other psychotic thought process. Assessment & Plan Remarks Ventriclkar arrhythmia, TdP Lactic acidosis, ileus, leukocytosis and reported C.diff exposure with colitis on CT - clinical picture is suspicious for C.diff though colitis can be due to other pathology - improving, however lack of diarrhea makes C.diff less likely and non specific colitis more plauseible dc broad spectriumn abx dc oral vanco chk stool for C.diff if develops diarrhea dw Gerri Garza MD Aug 15, 2017 18:29
[2017-08-15] MEDS: TRIMETHOBENZAMIDE INJ 200 MG/2 ML VIAL IM PRN (21:46)
[2017-08-16] VITALS (19 sets, daily range): BP systolic 113–135; BP diastolic 66–81; PULSE 53–88; RESP 16–22; TEMP 98–98.8; O2SAT 94–98
[2017-08-16] MEDS ORDERED: PHARMACY ORDERED LAB ONE (03:45)
[2017-08-16] MEDS: HYDROmorphone HCL PF 2 MG/ML VIAL IV PUSH PRN (03:46)
[2017-08-16] MEDS: VANCOMYCIN 500 MG VIAL (FOR ORAL USE ONLY) PO SCH ×2 (03:46→10:00)
[2017-08-16] MEDS: TRIMETHOBENZAMIDE INJ 200 MG/2 ML VIAL IM PRN ×2 (03:48→20:15)
[2017-08-16] MEDS ORDERED: CHLORHEXIDINE GLUCONATE 2 % 1 PACK (2 CLOTHS) TOPICAL PRN (06:45)
[2017-08-16] MEDS ORDERED: LACTATED RINGER'S 1000 ML IV PRN (06:45)
[2017-08-16] MEDS ORDERED: POVIDONE IODINE 5% (ANTISEPSIS KIT) 4 APPLICATIONS EACH NARE PRN (06:45)
[2017-08-16 07:06] LABS: HEMATOCRIT 37.9 % (35.0-46.0); MEAN CELL VOLUME 89.2 FL (80.0-100.0); MEAN CORPUSCULAR HEMOGLOBIN 30.7 PG (27.0-34.0); MEAN CORPUSCULAR HGB CONC 34.4 % (32.0-36.0); MEAN PLATELET VOLUME 7.9 FL (7.0-11.0); PLATELET COUNT 320 TH/MM3 (150-450); RED BLOOD COUNT 4.25 MIL/MM3 (4.00-5.30); RED CELL DISTRIBUTION WIDTH 13.5 % (11.6-17.2); WHITE BLOOD COUNT 10.4 TH/MM3 (4.0-11.0)
[2017-08-16 07:49] LABS: BICARBONATE 21.3 MEQ/L (21.0-32.0); CALCIUM 8.6 MG/DL (8.5-10.1); CREATININE 0.67 MG/DL (0.50-1.00); MAGNESIUM 2.5 MG/DL (1.5-2.5)
[2017-08-16 07:51] LABS: PHOSPHORUS 1.9 MG/DL (2.5-4.9)
--- NOTE | 2017-08-16 08:45 | PD.CONS ---
HPI History of Present Illness This is a 31 year old who came into the hospital to be evaluated on 08/14/17 for uncontrolled epigastric pain associated with nausea and vomiting. Patient has a history of GERD but according to the record stopped taking her GERD medications 3 months ago. Now symptoms have escalated back to uncontrolled nausea and vomiting and epigastric pain that she rates a 9 out of 10. She is very guarded in sore to light palpation, states she has dry heaves at times but no hematemesis. Symptoms are aggravated when she lies flat in the bed, worse on an empty stomach, and vomiting associated more so with red sauces. Patient has been smoking marijuana daily for approximately 8 years and states that it does seem to help her calm down and help her symptoms. Patient notes history of recent constipation for approximately 6 weeks and has been having to use laxatives at least 2 times a week associated with extra bottles of water. No family history of GI or colon cancer. Surgical procedures include appendectomy and . Patient denies any diarrhea, no dysphasia, no recent fevers. According to the record patient had dysrhythmias including increased QT interval and ventricular tachycardia in the emergency room she is also being followed by cardiology. No further dysrhythmias have been noted but patient may need further cardiac workup. (Chantel Gabriel) PFSH Past Medical History GERD Nausea, vomiting Constipation 6 weeks Probable anxiety relieved with smoking pot Past Surgical History Appendectomy (Chantel Gabriel) Coded Allergies: No Known Allergies (Unverified , 08/14/17) Medications Administered Medications Medications (Trade) Dose Ordered Sig/Maday Route PRN Reason Start Time Stop Time Status Last Admin Dose Admin Sodium Chloride (NS Flush) 2 ml BID IV FLUSH 08/14/17 21:00 08/15/17 20:17 Senna/Docusate Sodium (Helen-Colace) 1 tab BID PO 08/14/17 21:00 08/15/17 20:14 Hydromorphone HCl (Dilaudid Pf Inj) 0.5 mg Q4H PRN IV PUSH pain 8-10 or not taking po 08/14/17 14:15 08/16/17 03:46 Vancomycin HCl (VANCOMYCIN for oral use only) 125 mg Q6H PO 08/14/17 16:00 1/28/18 03:46 Trimethobenzamide HCl (Tigan Inj) 200 mg Q6H PRN IM nausea/vomiting 08/15/17 20:30 08/16/17 03:48 Family History Maternal grandmother with stroke Heart problems [place] paternal grandfather Social History Tobacco use Smoking half a pack to 1 pack a day since the age of 13 Marijuana use daily for the past 8 years, last use night, usually 3 x per day. Denies any other illicit drug use Occasional alcohol use, beer once in a while (Chantel Gabriel) Review of Systems Gastrointestinal: COMPLAINS OF: Abdominal pain (epigastric pain), Constipation , Nausea, Vomiting (Chantel Gabriel) GI Exam Vitals I&O Vital Signs Date Time Temp Pulse Resp B/P (MAP) Pulse Ox O2 Delivery O2 Flow Rate FiO2 08/16/17 06:00 53 08/16/17 05:00 57 08/16/17 04:00 Room Air 08/16/17 04:00 82 08/16/17 04:00 98.0 82 18 113/66 (82) 96 08/16/17 03:00 70 08/16/17 02:00 59 08/16/17 01:00 57 08/16/17 00:00 Room Air 08/16/17 00:00 58 08/16/17 00:00 98.4 58 22 113/74 (87) 98 08/15/17 23:00 59 08/15/17 22:00 53 08/15/17 21:00 60 08/15/17 20:00 61 08/15/17 20:00 Room Air 08/15/17 20:00 98.1 58 22 136/93 (107) 97 08/15/17 18:00 71 08/15/17 16:00 77 08/15/17 16:00 98.0 77 40 114/59 (77) 98 08/15/17 14:00 73 08/15/17 12:00 70 08/15/17 12:00 98.3 70 22 122/78 (93) 97 08/15/17 10:00 71 I/O 08/15/17 08/15/17 08/15/17 08/16/17 08/16/17 08/16/17 07:00 15:00 23:00 07:00 15:00 23:00 Intake Total 250 ml 240 ml 480 ml Output Total 550 ml 700 ml Balance -300 ml 240 ml -220 ml Intake Oral 240 ml 480 ml IV Total 250 ml Output Urine Total 550 ml 700 ml # Voids 3 # Bowel Movements 0 Imaging Last Impressions Brain MRI 08/15/17 0000 Signed Impressions: Service Date/Time: Tuesday, August 15, 2017 15:23 - CONCLUSION: No acute intracranial findings. Jose Preston MD Head CT 08/14/17 0000 Signed Impressions: Service Date/Time: Monday, August 14, 2017 15:04 - CONCLUSION: Normal examination for a patient of this age. Gabe Delgado MD Laboratory Test 08/15/17 16:44 08/16/17 04:27 White Blood Count 12.5 TH/MM3 10.4 TH/MM3 Red Blood Count 4.30 MIL/MM3 4.25 MIL/MM3 Hemoglobin 13.1 GM/DL 13.0 GM/DL Hematocrit 38.7 % 37.9 % Mean Corpuscular Volume 89.8 FL 89.2 FL Mean Corpuscular Hemoglobin 30.5 PG 30.7 PG Mean Corpuscular Hemoglobin Concent 33.9 % 34.4 % Red Cell Distribution Width 13.8 % 13.5 % Platelet Count 314 TH/MM3 320 TH/MM3 Mean Platelet Volume 7.8 FL 7.9 FL Neutrophils (%) (Auto) 69.3 % Lymphocytes (%) (Auto) 24.0 % Monocytes (%) (Auto) 5.9 % Eosinophils (%) (Auto) 0.3 % Basophils (%) (Auto) 0.5 % Neutrophils # (Auto) 8.7 TH/MM3 Lymphocytes # (Auto) 3.0 TH/MM3 Monocytes # (Auto) 0.7 TH/MM3 Eosinophils # (Auto) 0.0 TH/MM3 Basophils # (Auto) 0.1 TH/MM3 CBC Comment DIFF FINAL Differential Comment Blood Urea Nitrogen 11 MG/DL 12 MG/DL Creatinine 0.71 MG/DL 0.67 MG/DL Random Glucose 80 MG/DL 75 MG/DL Calcium Level 8.4 MG/DL 8.6 MG/DL Phosphorus Level 1.2 MG/DL 1.9 MG/DL Magnesium Level 2.4 MG/DL 2.5 MG/DL Sodium Level 138 MEQ/L 139 MEQ/L Potassium Level 3.3 MEQ/L 3.5 MEQ/L Chloride Level 108 MEQ/L 107 MEQ/L Carbon Dioxide Level 20.5 MEQ/L 21.3 MEQ/L Anion Gap 10 MEQ/L 11 MEQ/L Estimat Glomerular Filtration Rate 96 ML/MIN 103 ML/MIN Troponin I LESS THAN 0.02 NG/ML Physical Examination HEENT: Pupils round and reactive to light; normocephalic; atraumatic; no jaundice. Oral cavity clean NECK: Neck is supple CHEST: Chest is clear. No audible rhonchi noted CARDIAC: Regular rate and rhythm with no murmur gallop or rubs. ABDOMEN: Some guarding to epigastric area, epigastric area sore to touch Soft, nondistended, nontender; no hepatosplenomegaly; bowel sounds are present in all four quadrants. EXTREMITIES: No edema. SKIN: Normal; no rash; no jaundice. 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 Describes as a if epigastric burning, does have dry heaves. No history of EGD or colonoscopy. Daily marijuana use for 8 years could be causing, vomiting could be cyclic secondary to marijuana smoking. Possible food allergies. Constipation worse over the past 6 weeks having to use laxatives at least twice a week denies any diarrhea or lower abdominal pain or cramping Plan Nothing by mouth today remains EGD PPI Monitor for any acute bleeding episodes, nausea or vomiting Monitor labs with special attention to hemoglobin and hematocrit Further recommendations and plan a care will be based on symptom management. Patient will need outpatient follow-up This patient was seen by myself and Dr. Khanna saw on 08/15/17 pm, no written on his behalf (Chantel Gabriel) Plan Patient was seen and examined, agree with above Notes, plan on EGD today, if this is negative we will need gastric emptying study further plan depending on what we find on this procedure (Simran Khanna MD) Chantel Gabriel Aug 16, 2017 08:45 Simran Khanna MD Aug 16, 2017 12:19
[2017-08-16] MEDS: DOCUSATE SODIUM 50 MG/SENNA 8.6 MG TAB PO SCH ×2 (09:00→20:15)
--- NOTE | 2017-08-16 10:53 | PD.CARD.PN ---
Subjective Subjective Remarks Doing well No further tachyarrhythmias noted Objective Medications Current Medications Medications (Trade) Dose Ordered Sig/Maday Route Start Time Stop Time Status Last Admin (NS Flush) 2 ml UNSCH PRN IV FLUSH 08/14/17 12:30 (NS Flush) 2 ml BID IV FLUSH 08/14/17 21:00 08/15/17 20:17 (Tylenol) 650 mg Q4H PRN PO 08/14/17 12:30 (Lovenox Inj) 40 mg Q24H SQ 08/14/17 13:00 (Narcan Inj) 0.4 mg UNSCH PRN IV PUSH 08/14/17 12:30 (Helen-Colace) 1 tab BID PO 08/14/17 21:00 08/15/17 20:14 (Milk Of Magnesia Liq) 30 ml Q12H PRN PO 08/14/17 12:30 (Senokot) 17.2 mg Q12H PRN PO 08/14/17 12:30 (Dulcolax Supp) 10 mg DAILY PRN RECTAL 08/14/17 12:30 (Lactulose Liq) 30 ml DAILY PRN PO 08/14/17 12:30 (Dilaudid Pf Inj) 0.5 mg Q4H PRN IV PUSH 08/14/17 14:15 08/16/17 03:46 Amiodarone HCl 450 mg/Sodium Chloride 250 ml @ 33.33 mls/ hr Q7H31M PRN IV 08/14/17 15:30 (VANCOMYCIN for oral use only) 125 mg Q6H PO 08/14/17 16:00 08/16/17 03:46 Potassium Chloride 100 ml @ 50 mls/hr Q2H PRN IV 08/14/17 16:45 Potassium Chloride 100 ml @ 50 mls/hr Q2H PRN IV 08/14/17 16:45 (K-Lyte Cl Eff) 50 meq UNSCH PRN PO 08/14/17 16:45 Potassium Chloride 100 ml @ 25 mls/hr UNSCH PRN IV 08/14/17 16:45 Potassium Chloride 100 ml @ 50 mls/hr Q2H PRN IV 08/14/17 16:45 Magnesium Sulfate 4 gm/Sodium Chloride 100 ml @ 50 mls/hr UNSCH PRN IV 08/14/17 16:45 (Mag-Ox) 800 mg UNSCH PRN PO 08/14/17 16:45 Magnesium Sulfate 2 gm/Sodium Chloride 100 ml @ 50 mls/hr UNSCH PRN IV 08/14/17 16:45 (K-Phos) 2,000 mg Q4H PRN PO 08/14/17 16:45 Sodium Phosphate 30 mmol/Sodium Chloride 250 ml @ 42 mls/hr UNSCH PRN IV 08/14/17 16:45 (K-Phos) 2,000 mg UNSCH PRN PO/TUBE 08/14/17 16:45 Potassium Phosphate 30 mmol/ Sodium Chloride 260 ml @ 42 mls/hr UNSCH PRN IV 08/14/17 16:45 (Vimpat) 100 mg BID PO 08/16/17 09:00 (Tigan Inj) 200 mg Q6H PRN IM 08/15/17 20:30 08/16/17 03:48 Lactated Ringer's 1,000 ml @ 30 mls/hr Q24H PRN IV 08/16/17 06:45 08/19/17 06:44 (Betadine 5% Antisepsis Kit) 1 applic DIRECTOR OF STAFF DEVELOPMENT PRN EACH NARE 08/16/17 06:45 08/19/17 06:44 (Chlorhexidine 2% Cloth) 3 pack DIRECTOR OF STAFF DEVELOPMENT PRN TOPICAL 08/16/17 06:45 08/19/17 06:44 Vital Signs / I&O Vital Signs Date Time Temp Pulse Resp B/P (MAP) Pulse Ox O2 Delivery O2 Flow Rate FiO2 08/16/17 09:13 94 21 08/16/17 06:00 53 08/16/17 05:00 57 08/16/17 04:00 Room Air 08/16/17 04:00 82 08/16/17 04:00 98.0 82 18 113/66 (82) 96 08/16/17 03:00 70 08/16/17 02:00 59 08/16/17 01:00 57 08/16/17 00:00 Room Air 08/16/17 00:00 58 08/16/17 00:00 98.4 58 22 113/74 (87) 98 08/15/17 23:00 59 08/15/17 22:00 53 08/15/17 21:00 60 08/15/17 20:00 61 08/15/17 20:00 Room Air 08/15/17 20:00 98.1 58 22 136/93 (107) 97 08/15/17 18:00 71 08/15/17 16:00 77 08/15/17 16:00 98.0 77 40 114/59 (77) 98 08/15/17 14:00 73 08/15/17 12:00 70 08/15/17 12:00 98.3 70 22 122/78 (93) 97 I/O 08/15/17 08/15/17 08/15/17 08/16/17 08/16/17 08/16/17 07:00 15:00 23:00 07:00 15:00 23:00 Intake Total 250 ml 240 ml 480 ml Output Total 550 ml 700 ml Balance -300 ml 240 ml -220 ml Intake Oral 240 ml 480 ml IV Total 250 ml Output Urine Total 550 ml 700 ml # Voids 3 # Bowel Movements 0 Physical Exam GENERAL: NAD, AAOx3 SKIN: Warm and dry. HEAD: Atraumatic. Normocephalic. EYES: Pupils equal and round. No scleral icterus. No injection or drainage. ENT: No nasal bleeding or discharge. Mucous membranes pink and moist. NECK: Trachea midline. No JVD. CARDIOVASCULAR: Regular rate and rhythm. RESPIRATORY: No accessory muscle use. Clear to auscultation. Breath sounds equal bilaterally. GASTROINTESTINAL: Abdomen soft, non-tender, nondistended. Hepatic and splenic margins not palpable. MUSCULOSKELETAL: Extremities without clubbing, cyanosis, or edema. No obvious deformities. NEUROLOGICAL: Awake and alert. No obvious cranial nerve deficits. Motor grossly within normal limits. Five out of 5 muscle strength in the arms and legs. Normal speech. PSYCHIATRIC: Appropriate mood and affect; insight and judgment normal. Laboratory Laboratory Tests Test 08/15/17 16:44 08/16/17 04:27 White Blood Count 12.5 TH/MM3 10.4 TH/MM3 Red Blood Count 4.30 MIL/MM3 4.25 MIL/MM3 Hemoglobin 13.1 GM/DL 13.0 GM/DL Hematocrit 38.7 % 37.9 % Mean Corpuscular Volume 89.8 FL 89.2 FL Mean Corpuscular Hemoglobin 30.5 PG 30.7 PG Mean Corpuscular Hemoglobin Concent 33.9 % 34.4 % Red Cell Distribution Width 13.8 % 13.5 % Platelet Count 314 TH/MM3 320 TH/MM3 Mean Platelet Volume 7.8 FL 7.9 FL Neutrophils (%) (Auto) 69.3 % Lymphocytes (%) (Auto) 24.0 % Monocytes (%) (Auto) 5.9 % Eosinophils (%) (Auto) 0.3 % Basophils (%) (Auto) 0.5 % Neutrophils # (Auto) 8.7 TH/MM3 Lymphocytes # (Auto) 3.0 TH/MM3 Monocytes # (Auto) 0.7 TH/MM3 Eosinophils # (Auto) 0.0 TH/MM3 Basophils # (Auto) 0.1 TH/MM3 CBC Comment DIFF FINAL Differential Comment Blood Urea Nitrogen 11 MG/DL 12 MG/DL Creatinine 0.71 MG/DL 0.67 MG/DL Random Glucose 80 MG/DL 75 MG/DL Calcium Level 8.4 MG/DL 8.6 MG/DL Phosphorus Level 1.2 MG/DL 1.9 MG/DL Magnesium Level 2.4 MG/DL 2.5 MG/DL Sodium Level 138 MEQ/L 139 MEQ/L Potassium Level 3.3 MEQ/L 3.5 MEQ/L Chloride Level 108 MEQ/L 107 MEQ/L Carbon Dioxide Level 20.5 MEQ/L 21.3 MEQ/L Anion Gap 10 MEQ/L 11 MEQ/L Estimat Glomerular Filtration Rate 96 ML/MIN 103 ML/MIN Troponin I LESS THAN 0.02 NG/ML Assessment and Plan Problem List: (1) V-tach ICD Codes: I47.2 - Ventricular tachycardia (2) SIRS (systemic inflammatory response syndrome) ICD Codes: R65.10 - Systemic inflammatory response syndrome (SIRS) of non- infectious origin without acute organ dysfunction (3) Intractable nausea and vomiting ICD Codes: R11.2 - Nausea with vomiting, unspecified Assessment and Plan 1) No further episodes of VT Con't to monitor on telemetry If further episodes then possible ICD on Thursday, if not then possible EP study on Thursday, will discuss further with Dr. Brooks 2) Nausea/Emesis Chronic issue per the patient GI planning on EGD 3) Keep electrolytes repleted 4) QTc on EKG down to 421 Sunday Rodriguez DO Aug 16, 2017 10:53
[2017-08-16] MEDS: LACOSAMIDE 100 MG TAB PO SCH ×2 (11:13→20:15)
[2017-08-16] MEDS: SODIUM CHLORIDE 0.9% FLUSH 10 ML FLUSH IV FLUSH SCH ×2 (11:16→20:15)
--- NOTE | 2017-08-16 12:23 | HHI.PR ---
Review/Management Daily Summary 08/16 discussed with her EEG findings mri normal she did not received bolus dose Vimpat yest, unclear as to reason to start vimpat 100 bid today office f/u in 1-2 weeks Subjective Subjective Comments no seizures or neuro spells Active Medications Current Medications Medications (Trade) Dose Ordered Sig/Maday Route Start Time Stop Time Status Last Admin (NS Flush) 2 ml UNSCH PRN IV FLUSH 08/14/17 12:30 (NS Flush) 2 ml BID IV FLUSH 08/14/17 21:00 08/16/17 11:16 (Tylenol) 650 mg Q4H PRN PO 08/14/17 12:30 (Lovenox Inj) 40 mg Q24H SQ 08/14/17 13:00 (Narcan Inj) 0.4 mg UNSCH PRN IV PUSH 08/14/17 12:30 (Helen-Colace) 1 tab BID PO 08/14/17 21:00 08/16/17 09:00 (Milk Of Magnesia Liq) 30 ml Q12H PRN PO 08/14/17 12:30 (Senokot) 17.2 mg Q12H PRN PO 08/14/17 12:30 (Dulcolax Supp) 10 mg DAILY PRN RECTAL 08/14/17 12:30 (Lactulose Liq) 30 ml DAILY PRN PO 08/14/17 12:30 (Dilaudid Pf Inj) 0.5 mg Q4H PRN IV PUSH 08/14/17 14:15 08/16/17 03:46 Amiodarone HCl 450 mg/Sodium Chloride 250 ml @ 33.33 mls/ hr Q7H31M PRN IV 08/14/17 15:30 (VANCOMYCIN for oral use only) 125 mg Q6H PO 08/14/17 16:00 08/16/17 10:00 Potassium Chloride 100 ml @ 50 mls/hr Q2H PRN IV 08/14/17 16:45 Potassium Chloride 100 ml @ 50 mls/hr Q2H PRN IV 08/14/17 16:45 (K-Lyte Cl Eff) 50 meq UNSCH PRN PO 08/14/17 16:45 Potassium Chloride 100 ml @ 25 mls/hr UNSCH PRN IV 08/14/17 16:45 Potassium Chloride 100 ml @ 50 mls/hr Q2H PRN IV 08/14/17 16:45 Magnesium Sulfate 4 gm/Sodium Chloride 100 ml @ 50 mls/hr UNSCH PRN IV 08/14/17 16:45 (Mag-Ox) 800 mg UNSCH PRN PO 08/14/17 16:45 Magnesium Sulfate 2 gm/Sodium Chloride 100 ml @ 50 mls/hr UNSCH PRN IV 08/14/17 16:45 (K-Phos) 2,000 mg Q4H PRN PO 08/14/17 16:45 Sodium Phosphate 30 mmol/Sodium Chloride 250 ml @ 42 mls/hr UNSCH PRN IV 08/14/17 16:45 (K-Phos) 2,000 mg UNSCH PRN PO/TUBE 08/14/17 16:45 Potassium Phosphate 30 mmol/ Sodium Chloride 260 ml @ 42 mls/hr UNSCH PRN IV 08/14/17 16:45 (Vimpat) 100 mg BID PO 08/16/17 09:00 08/16/17 11:13 (Tigan Inj) 200 mg Q6H PRN IM 08/15/17 20:30 08/16/17 03:48 Lactated Ringer's 1,000 ml @ 30 mls/hr Q24H PRN IV 08/16/17 06:45 08/19/17 06:44 (Betadine 5% Antisepsis Kit) 1 applic VICE PRESIDENT OF COMPLIANCE PRN EACH NARE 08/16/17 06:45 08/19/17 06:44 (Chlorhexidine 2% Cloth) 3 pack VICE PRESIDENT OF COMPLIANCE PRN TOPICAL 08/16/17 06:45 08/19/17 06:44 Allergies Allergies Coded Allergies No Known Allergies (Unverified08/14/17) Exam I&O / VS Vital Signs Date Time Temp Pulse Resp B/P (MAP) Pulse Ox O2 Delivery O2 Flow Rate FiO2 08/16/17 11:00 98.8 56 16 121/74 (90) 97 08/16/17 09:13 94 21 08/16/17 07:00 98.5 76 18 126/81 (96) 95 08/16/17 06:00 53 08/16/17 05:00 57 08/16/17 04:00 Room Air 08/16/17 04:00 82 08/16/17 04:00 98.0 82 18 113/66 (82) 96 1/28/18 03:00 70 08/16/17 02:00 59 08/16/17 01:00 57 08/16/17 00:00 Room Air 08/16/17 00:00 58 08/16/17 00:00 98.4 58 22 113/74 (87) 98 08/15/17 23:00 59 08/15/17 22:00 53 08/15/17 21:00 60 08/15/17 20:00 61 08/15/17 20:00 Room Air 08/15/17 20:00 98.1 58 22 136/93 (107) 97 08/15/17 18:00 71 08/15/17 16:00 77 08/15/17 16:00 98.0 77 40 114/59 (77) 98 08/15/17 14:00 73 Objective Radiology Results Last 48 hours Impressions Brain MRI 08/15/17 0000 Signed Impressions: Service Date/Time: Tuesday, August 15, 2017 15:23 - CONCLUSION: No acute intracranial findings. Jose Preston MD Micro and Labs Laboratory Tests Test 08/15/17 16:44 08/16/17 04:27 White Blood Count 12.5 10.4 Red Blood Count 4.30 4.25 Hemoglobin 13.1 13.0 Hematocrit 38.7 37.9 Mean Corpuscular Volume 89.8 89.2 Mean Corpuscular Hemoglobin 30.5 30.7 Mean Corpuscular Hemoglobin Concent 33.9 34.4 Red Cell Distribution Width 13.8 13.5 Platelet Count 314 320 Mean Platelet Volume 7.8 7.9 Neutrophils (%) (Auto) 69.3 Lymphocytes (%) (Auto) 24.0 Monocytes (%) (Auto) 5.9 Eosinophils (%) (Auto) 0.3 Basophils (%) (Auto) 0.5 Neutrophils # (Auto) 8.7 Lymphocytes # (Auto) 3.0 Monocytes # (Auto) 0.7 Eosinophils # (Auto) 0.0 Basophils # (Auto) 0.1 CBC Comment DIFF FINAL Differential Comment Blood Urea Nitrogen 11 12 Creatinine 0.71 0.67 Random Glucose 80 75 Calcium Level 8.4 8.6 Phosphorus Level 1.2 1.9 Magnesium Level 2.4 2.5 Sodium Level 138 139 Potassium Level 3.3 3.5 Chloride Level 108 107 Carbon Dioxide Level 20.5 21.3 Anion Gap 10 11 Estimat Glomerular Filtration Rate 96 103 Troponin I LESS THAN 0.02 Karla Munoz MD Aug 16, 2017 12:23
--- NOTE | 2017-08-16 12:28 | EKG ---
Date Performed: 08/15/2017 Time Performed: 12:34:53 PTAGE: 31 years EKG: SINUS BRADYCARDIA WITH SINUS ARRHYTHMIA WITH SHORT ME INTERVAL BORDERLINE ECG PREVIOUS TRACING : 08/14/2017 18.21 Since the prior tracing, there has been no significant francois DOCTOR: Hong Carr Interpretating Date/Time 08/16/2017 12:25:03
--- NOTE | 2017-08-16 12:33 | PD.PROCEDR ---
GI Procedure PROCEDURE PERFORMED Upper endoscopy with biopsy INDICATION FOR PROCEDURE Nausea vomiting, abdominal pain PROCEDURE: The procedure, risks and benefits were discussed with Ms. Dowd and informed consent was obtained. Anesthesia sedated her with Diprivan. She was placed in the left lateral decubitus position. EGD: The Pentax videoscope was introduced through the oropharynx and advanced to the second portion of the duodenum under direct visualization. Retroflexion was performed in the stomach. ESTIMATED BLOOD LOSS: None SPECIMENS REMOVED: Antrum to rule out H. pylori COMPLICATIONS: None IMPRESSION: Normal exam, no peptic ulcer disease or esophagitis Biopsy from the antrum to rule out H. pylori PLAN: Gastric emptying study tomorrow Follow-up biopsy Antiemetics as needed Avoid pain medicine so we can get accurate results on the gastric emptying study tomorrow Simran Khanna MD Aug 16, 2017 12:33
--- NOTE | 2017-08-16 12:35 | HHI.GIFU ---
Subjective Remarks Patient is doing okay, still some nausea but no vomiting Objective Vitals I&O Vital Signs Date Time Temp Pulse Resp B/P (MAP) Pulse Ox O2 Delivery O2 Flow Rate FiO2 08/16/17 11:50 97.8 78 16 148/71 (96) 95 08/16/17 11:00 98.8 56 16 121/74 (90) 97 08/16/17 09:13 94 21 08/16/17 07:00 98.5 76 18 126/81 (96) 95 08/16/17 06:00 53 08/16/17 05:00 57 08/16/17 04:00 Room Air 08/16/17 04:00 82 08/16/17 04:00 98.0 82 18 113/66 (82) 96 08/16/17 03:00 70 08/16/17 02:00 59 08/16/17 01:00 57 08/16/17 00:00 Room Air 08/16/17 00:00 58 08/16/17 00:00 98.4 58 22 113/74 (87) 98 08/15/17 23:00 59 08/15/17 22:00 53 08/15/17 21:00 60 08/15/17 20:00 61 08/15/17 20:00 Room Air 08/15/17 20:00 98.1 58 22 136/93 (107) 97 08/15/17 18:00 71 08/15/17 16:00 77 08/15/17 16:00 98.0 77 40 114/59 (77) 98 08/15/17 14:00 73 I/O 08/15/17 08/15/17 08/15/17 08/16/17 08/16/17 08/16/17 07:00 15:00 23:00 07:00 15:00 23:00 Intake Total 250 ml 240 ml 480 ml Output Total 550 ml 700 ml Balance -300 ml 240 ml -220 ml Intake Oral 240 ml 480 ml IV Total 250 ml Output Urine Total 550 ml 700 ml # Voids 3 # Bowel Movements 0 Laboratory Laboratory Tests Test 08/15/17 16:44 08/16/17 04:27 White Blood Count 12.5 10.4 Red Blood Count 4.30 4.25 Hemoglobin 13.1 13.0 Hematocrit 38.7 37.9 Mean Corpuscular Volume 89.8 89.2 Mean Corpuscular Hemoglobin 30.5 30.7 Mean Corpuscular Hemoglobin Concent 33.9 34.4 Red Cell Distribution Width 13.8 13.5 Platelet Count 314 320 Mean Platelet Volume 7.8 7.9 Neutrophils (%) (Auto) 69.3 Lymphocytes (%) (Auto) 24.0 Monocytes (%) (Auto) 5.9 Eosinophils (%) (Auto) 0.3 Basophils (%) (Auto) 0.5 Neutrophils # (Auto) 8.7 Lymphocytes # (Auto) 3.0 Monocytes # (Auto) 0.7 Eosinophils # (Auto) 0.0 Basophils # (Auto) 0.1 CBC Comment DIFF FINAL Differential Comment Blood Urea Nitrogen 11 12 Creatinine 0.71 0.67 Random Glucose 80 75 Calcium Level 8.4 8.6 Phosphorus Level 1.2 1.9 Magnesium Level 2.4 2.5 Sodium Level 138 139 Potassium Level 3.3 3.5 Chloride Level 108 107 Carbon Dioxide Level 20.5 21.3 Anion Gap 10 11 Estimat Glomerular Filtration Rate 96 103 Troponin I LESS THAN 0.02 Physical Exam HEENT: Pupils round and reactive to light; normocephalic; atraumatic; no jaundice. Throat is clear. NECK: Neck is supple, no JVD, no lymphadenopathy. CHEST: Chest is clear to auscultation and percussion. CARDIAC: Regular rate and rhythm with no murmur gallop or rubs. ABDOMEN: Soft, nondistended, mild midepigastric tenderness; no hepatosplenomegaly; bowel sounds are present in all four quadrants. EXTREMITIES: No clubbing, cyanosis, or edema. SKIN: Normal; no rash; no jaundice. 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 Assessment and Plan Assessment: (1) Intractable nausea and vomiting ICD Codes: R11.2 - Nausea with vomiting, unspecified Plan Patient is a 31-year-old lady with nausea vomiting abdominal pain questionable etiology, upper endoscopy was done today which was normal, patient uses could be cyclic vomiting syndrome agree with above Notes, IMPRESSION: Normal exam, no peptic ulcer disease or esophagitis Biopsy from the antrum to rule out H. pylori PLAN: Gastric emptying study tomorrow Follow-up biopsy Antiemetics as needed Avoid pain medicine so we can get accurate results on the gastric emptying study tomorrow Simran Khanna MD Aug 16, 2017 12:35
[2017-08-16] MEDS ORDERED: DO NOT ADM ANY ANTICOAGULANT DRUGS PRN (13:00)
[2017-08-16] MEDS: ENOXAPARIN SODIUM 40 MG/0.4 ML SYRINGE SQ SCH (13:22)
--- NOTE | 2017-08-16 14:03 | ECHRPT ---
Indication: SOB CONCLUSIONS The left ventricular systolic function is normal with an estimated ejection fraction in the range of 60-65%. Trace mitral valve regurgitation. There is trace tricuspid valve regurgitation. BP: 144 / 123 HR: 94 Rhythm: MEASUREMENTS (Male / Female) Normal Values Technical Quality:Good 2D ECHO LV Diastolic Diameter PLAX 4.7 cm 4.2 - 5.9 / 3.9 - 5.3 cm LV Systolic Diameter PLAX 3.4 cm IVS Diastolic Thickness 0.7 cm 0.6 - 1.0 / 0.6 - 0.9 cm LVPW Diastolic Thickness 0.7 cm 0.6 - 1.0 / 0.6 - 0.9 cm LV Relative Wall Thickness 0.3 RV Internal Dim ED PLAX 1.5 cm LA Systolic Diameter LX 3.2 cm 3.0 - 4.0 / 2.7 - 3.8 cm M-MODE Aortic Root Diameter MM 2.9 cm AV Cusp Separation MM 1.7 cm DOPPLER Mitral E Point Velocity 46.4 cm/s Mitral A Point Velocity 97.2 cm/s Mitral E to A Ratio 0.5 TR Peak Velocity 229.3 cm/s TR Peak Gradient 21.0 mmHg FINDINGS LEFT VENTRICLE Normal left ventricular size. Wall thickness is normal. The left ventricular systolic function is normal with an estimated ejection fraction in the range of 60-65%. No regional wall motion abnormalities are present. Left ventricular diastolic function parameters are normal. RIGHT VENTRICLE Normal right ventricular size and systolic function. LEFT ATRIUM The left atrial size is normal. RIGHT ATRIUM The right atrial size is normal. ATRIAL SEPTUM Normal atrial septal thickness without atrial level shunting by limited color doppler interrogation. AORTA The aortic root and proximal ascending aorta are normal in size on limited imaging. MITRAL VALVE Structurally normal mitral valve. No mitral valve stenosis. Trace mitral valve regurgitation. AORTIC VALVE Trileaflet aortic valve. No aortic valve stenosis or regurgitation. TRICUSPID VALVE Structurally normal tricuspid valve. No tricuspid valve stenosis. There is trace tricuspid valve regurgitation. PULMONARY VALVE The pulmonary valve is not well visualized. VESSELS The inferior vena cava is normal in size. PERICARDIUM No pericardial effusion. Sunday Rodriguez DO (Electronically Signed) Final Date:16 August 2017 14:02
--- NOTE | 2017-08-16 16:30 | HHI.PR ---
Subjective Remarks Follow-up for torsades and intractable emesis for 8 years Patient denies any nausea/vomiting. She denies any chest pain, palpitation, shortness of breathing, lightheadedness dizziness. She stated that she feels fine. Patient smokes marijuana chronically. She also denies any abdominal pain. Her at the bedside during the interview. Patient also spoke on the phone during my interview with her because she really needed to eat and wanted to eat. Later spoke to us out of patient's room complaining about multiple IV sites. He stated that no one listens to them in regards to the IV sites and that he was upset that magnesium was placed in the IV site. We explained charge nurse and I that magnesium was very important in keeping patient alive since she had abnormal rhythm that required magnesium to keep her heart from stopping. Objective Vitals Vital Signs Date Time Temp Pulse Resp B/P (MAP) Pulse Ox O2 Delivery O2 Flow Rate FiO2 08/16/17 12:54 98.3 75 16 92 Room Air 08/16/17 12:45 80 16 120/74 (89) 93 Room Air 08/16/17 12:41 98.0 80 16 119/72 (88) 95 Room Air 08/16/17 11:50 97.8 78 16 148/71 (96) 95 08/16/17 11:00 98.8 56 16 121/74 (90) 97 08/16/17 09:13 94 21 08/16/17 07:00 98.5 76 18 126/81 (96) 95 08/16/17 06:00 53 08/16/17 05:00 57 08/16/17 04:00 Room Air 08/16/17 04:00 82 08/16/17 04:00 98.0 82 18 113/66 (82) 96 08/16/17 03:00 70 08/16/17 02:00 59 08/16/17 01:00 57 08/16/17 00:00 Room Air 08/16/17 00:00 58 08/16/17 00:00 98.4 58 22 113/74 (87) 98 08/15/17 23:00 59 08/15/17 22:00 53 08/15/17 21:00 60 08/15/17 20:00 61 08/15/17 20:00 Room Air 08/15/17 20:00 98.1 58 22 136/93 (107) 97 08/15/17 18:00 71 I/O 08/15/17 08/15/17 08/15/17 08/16/17 08/16/17 08/16/17 07:00 15:00 23:00 07:00 15:00 23:00 Intake Total 250 ml 240 ml 480 ml 300 ml Output Total 550 ml 700 ml Balance -300 ml 240 ml -220 ml 300 ml Intake Oral 240 ml 480 ml IV Total 250 ml 0 ml Other 300 ml Output Urine Total 550 ml 700 ml # Voids 3 # Bowel Movements 0 Result Diagram: 08/16/1742608/16/17426 Objective Remarks GENERAL: In no acute distress but patient did a lot of eye rolling during the interview. CARDIOVASCULAR: Regular rate and rhythm without murmurs, gallops, or rubs. RESPIRATORY: Breath sounds equal bilaterally. No accessory muscle use. GASTROINTESTINAL: Abdomen soft, non-tender, nondistended. MUSCULOSKELETAL: No cyanosis, or edema. BACK: Nontender without obvious deformity. No CVA tenderness. Medications and IVs Current Medications Sodium Chloride (NS Flush) 2 ml UNSCH PRN IV FLUSH FLUSH AFTER USING IV ACCESS ; Start 08/14/17 at 12:30 Sodium Chloride (NS Flush) 2 ml BID IV FLUSH Last administered on 08/16/17at 11: 16; Start 08/14/17 at 21:00 Acetaminophen (Tylenol) 650 mg Q4H PRN PO TEMP > 100.4; Start 08/14/17 at 12:30 Enoxaparin Sodium (Lovenox Inj) 40 mg Q24H SQ Last administered on 08/16/17at 13 :22; Start 08/14/17 at 13:00 Naloxone HCl (Narcan Inj) 0.4 mg UNSCH PRN IV PUSH SEE LABEL COMMENTS; Start at 12:30 Senna/Docusate Sodium (Helen-Colace) 1 tab BID PO Last administered on at 09:00; Start 08/14/17 at 21:00 Magnesium Hydroxide (Milk Of Magnesia Liq) 30 ml Q12H PRN PO Mild constipation ; Start 08/14/17 at 12:30 Sennosides (Senokot) 17.2 mg Q12H PRN PO Moderate constipation; Start 08/14/17 at 12:30 Bisacodyl (Dulcolax Supp) 10 mg DAILY PRN RECTAL SEVERE CONSITIPATION; Start at 12:30 Lactulose (Lactulose Liq) 30 ml DAILY PRN PO SEVERE CONSITIPATION; Start at 12:30 Amiodarone HCl 150 mg/Dextrose 103 ml @ 600 mls/hr Q11M ONCE IV ; Start at 12:28; Stop 08/14/17 at 12:38; Status UNV Amiodarone HCl 450 mg/Dextrose 250 ml @ 33.33 mls/ hr Q7H31M PRN IV Per Protocol; Start 08/14/17 at 12:38; Stop 08/14/17 at 14:24; Status DC Amiodarone HCl 150 mg/Dextrose 100 ml @ 100 mls/hr Q1H ONCE IV ; Start at 12:28; Stop 08/14/17 at 13:27; Status UNV Piperacillin Sod/ Tazobactam Sod 100 ml @ 200 mls/hr Q6H IV ; Start 08/14/17 at 18:00; Stop 08/14/17 at 18:00; Status DC Pharmacy Profile Note 0 ml @ 0 mls/hr UNSCH OTHER ; Start 08/14/17 at 12:45; Stop 08/14/17 at 15:16; Status DC Vancomycin/Sodium Chloride 200 ml @ 200 mls/hr Q24H IV ; Start 08/14/17 at 12: 45; Status UNV Hydromorphone HCl (Dilaudid Pf Inj) 0.5 mg Q4H PRN IV PUSH pain 8-10 or not taking po Last administered on 08/16/17at 03:46; Start 08/14/17 at 14:15 Propofol 50 ml @ As Directed STK-MED ONCE .ROUTE ; Start 08/14/17 at 14:10; Stop 08/14/17 at 14:11; Status DC Amiodarone HCl 450 mg/Sodium Chloride 250 ml @ 33.33 mls/ hr Q7H31M PRN IV Per Protocol; Start 08/14/17 at 15:30 Vancomycin HCl 1250 mg/Sodium Chloride 262.5 ml @ 250 mls/hr Q12H IV ; Start at 16:00; Stop 08/14/17 at 16:00; Status DC Miscellaneous Information SPECIFIC LAB TO BE DRAWN:VANCOMYCIN TROUGH DATE TO... ONCE ONCE .XX ; Start 08/16/17 at 03:45; Stop 08/16/17 at 03:46; Status Cancel Vancomycin HCl (VANCOMYCIN for oral use only) 125 mg Q6H PO Last administered on 08/16/17at 10:00; Start 08/14/17 at 16:00 Potassium Chloride 100 ml @ 50 mls/hr Q2H PRN IV For Potassium 2.8 - 3.2 mEq/L ; Start 08/14/17 at 16:45 Potassium Chloride 100 ml @ 50 mls/hr Q2H PRN IV For Potassium 2.8 - 3.2 mEq/L ; Start 08/14/17 at 16:45 Potassium Bicarb/ Potassium Chloride (K-Lyte Cl Eff) 50 meq UNSCH PRN PO For Potassium 3.3 - 3.5 mEq/L; Start 08/14/17 at 16:45 Potassium Chloride 100 ml @ 25 mls/hr UNSCH PRN IV For Potassium 3.3 - 3.5 mEq /L; Start 08/14/17 at 16:45 Potassium Chloride 100 ml @ 50 mls/hr Q2H PRN IV For Potassium 3.3 - 3.5 mEq/L ; Start 08/14/17 at 16:45 Magnesium Sulfate 4 gm/Sodium Chloride 100 ml @ 50 mls/hr UNSCH PRN IV For Magnesium 0.9 - 1.1 mg/dL; Start 08/14/17 at 16:45 Magnesium Oxide (Mag-Ox) 800 mg UNSCH PRN PO For Magnesium 1.2 - 1.6 mg/dL; Start 08/14/17 at 16:45 Magnesium Sulfate 2 gm/Sodium Chloride 100 ml @ 50 mls/hr UNSCH PRN IV For Magnesium 1.2 - 1.6 mg/dL; Start 08/14/17 at 16:45 Potassium Phosphate (K-Phos) 2,000 mg Q4H PRN PO For Phosphorus < 2.5 mg/dL; Start 08/14/17 at 16:45 Sodium Phosphate 30 mmol/Sodium Chloride 250 ml @ 42 mls/hr UNSCH PRN IV For Phosphorus < 2.5 mg/dL; Start 08/14/17 at 16:45 Potassium Phosphate (K-Phos) 2,000 mg UNSCH PRN PO/TUBE SEE LABEL COMMENTS; Start 08/14/17 at 16:45 Potassium Phosphate 30 mmol/ Sodium Chloride 260 ml @ 42 mls/hr UNSCH PRN IV SEE LABEL COMMENTS; Start 08/14/17 at 16:45 Sodium Phosphate 30 mmol/Sodium Chloride 260 ml @ 43.333 mls/ hr ONCE ONCE IV Last administered on 08/14/17at 17:51; Start 08/14/17 at 16:45; Stop 08/14/17 at 22:44; Status DC Ondansetron HCl (Zofran Inj) 4 mg ONCE ONCE IV PUSH Last administered on at 19:34; Start 08/14/17 at 19:15; Stop 08/14/17 at 19:16; Status DC Al Hydrox/Mg Hydrox/Simethicone (Mag-Al Plus Susp Liq) 30 ml ONCE ONCE PO Last administered on 08/15/17at 10:16; Start 08/15/17 at 09:15; Stop 08/15/17 at 09:25; Status DC Lidocaine HCl (Xylocaine 2% Viscous) 15 ml ONCE ONCE PO Last administered on at 10:16; Start 08/15/17 at 09:15; Stop 08/15/17 at 09:25; Status DC Lacosamide 200 mg/ Sodium Chloride 120 ml @ 240 mls/hr ONCE ONCE IV ; Start at 16:00; Stop 08/15/17 at 16:29; Status DC Lacosamide (Vimpat) 100 mg BID PO Last administered on 08/16/17at 11:13; Start 08/16/17 at 09:00 Gadodiamide (Omniscan Pf Inj) 10 ml STK-MED ONCE IVCONTRAST Last administered on 08/15/17at 15:53; Start 08/15/17 at 15:53; Stop 08/15/17 at 15:54; Status DC Trimethobenzamide HCl (Tigan Inj) 200 mg Q6H PRN IM nausea/vomiting Last administered on 08/16/17at 03:48; Start 08/15/17 at 20:30 Lactated Ringer's 1,000 ml @ 30 mls/hr Q24H PRN IV SEE LABEL COMMENTS; Start at 06:45; Stop 08/19/17 at 06:44 Povidone Iodine (Betadine 5% Antisepsis Kit) 1 applic M48 M60 ARMOR CREWMAN PRN EACH NARE SEE LABEL COMMENTS; Start 08/16/17 at 06:45; Stop 08/19/17 at 06:44 Chlorhexidine Gluconate (Chlorhexidine 2% Cloth) 3 pack M48 M60 ARMOR CREWMAN PRN TOPICAL SEE LABEL COMMENTS; Start 08/16/17 at 06:45; Stop 08/19/17 at 06:44 Miscellaneous Information ALL NURSING DEPARTME... UNSCH PRN .XX SEE LABEL COMMENTS; Start 08/16/17 at 13:00; Stop 08/17/17 at 12:59 A/P Problem List: (1) V-tach ICD Code: I47.2 - Ventricular tachycardia (2) SIRS (systemic inflammatory response syndrome) ICD Code: R65.10 - Systemic inflammatory response syndrome (SIRS) of non- infectious origin without acute organ dysfunction (3) Intractable nausea and vomiting ICD Code: R11.2 - Nausea with vomiting, unspecified Assessment and Plan 31-year-old female with chronic long-standing history of nausea and vomiting times at least 8 years and chronic marijuana use who presented with intractable emesis and epigastric pain Cyclic hyperemesis and epigastric pain -Epigastric pain resolves when nausea/emesis resolved. She is asymptomatic at the moment. EGD done today which was negative. -Urine drug screen positive for marijuana. Patient stated that she smokes marijuana. -Most likely chronic intractable emesis secondary to chronic marijuana use. Education given to patient to see if she stops marijuana use to see if her symptoms will resolved since patient is asymptomatic at the moment since she has not been using marijuana during hospital course. Patient did not like the idea and it made her upset. -Patient is scheduled for a gastric emptying study tomorrow. At the moment she does not have any pain will need to discontinue all pain medication since it can also interfere with results of the gastric emptying study. Torsades -Status post magnesium given. Most likely secondary to hypomagnesemia from emesis. -Airline Managerial Supervisor following. Per transportation maintenance operator ICD versus EP study on Thursday. -Avoid prolonged QT medication. Syncope, multiple episodes - appears to be more psychogenic in origin - Seemed to be anxiety induced. -Neurologist consulted. Stated that if she has any episodes during hospital course May consider further workup but most likely secondary to psychiatric disorders such as anxiety. Marijuana dependence -Education given on cessation. Discharge Planning Schedule for possible EP study versus ICD tomorrow. Continue to monitor over telemetry. Katharina Montaño MD Aug 16, 2017 16:30
[2017-08-17] VITALS (22 sets, daily range): BP systolic 118–136; BP diastolic 71–83; PULSE 70–96; RESP 18–19; TEMP 98.1–99.4; O2SAT 96–98
[2017-08-17 06:52] LABS: CALCIUM 8.5 MG/DL (8.5-10.1); CREATININE 0.63 MG/DL (0.50-1.00); MAGNESIUM 2.3 MG/DL (1.5-2.5); PHOSPHORUS 2.1 MG/DL (2.5-4.9)
[2017-08-17 07:17] LABS: HEMATOCRIT 37.7 % (35.0-46.0); HEMOGLOBIN 12.8 GM/DL (11.6-15.3); MEAN CELL VOLUME 89.2 FL (80.0-100.0); MEAN CORPUSCULAR HEMOGLOBIN 30.3 PG (27.0-34.0); MEAN PLATELET VOLUME 8.3 FL (7.0-11.0); PLATELET COUNT 293 TH/MM3 (150-450); RED BLOOD COUNT 4.23 MIL/MM3 (4.00-5.30); RED CELL DISTRIBUTION WIDTH 13.7 % (11.6-17.2); WHITE BLOOD COUNT 13.9 TH/MM3 (4.0-11.0)
[2017-08-17] MEDS: LACOSAMIDE 100 MG TAB PO SCH ×2 (08:47→20:47)
[2017-08-17] MEDS: DOCUSATE SODIUM 50 MG/SENNA 8.6 MG TAB PO SCH ×2 (08:47→20:47)
[2017-08-17] MEDS: SODIUM CHLORIDE 0.9% FLUSH 10 ML FLUSH IV FLUSH SCH ×2 (08:47→20:38)
[2017-08-17] MEDS ORDERED: ONDANSETRON HCL 4 MG/2 ML VIAL IV ONE (12:00)
[2017-08-17] MEDS ORDERED: PROPOFOL 200 MG/20 ML AMP IV ONE (12:00)
[2017-08-17] MEDS ORDERED: DEXAMETHASONE SOD PHOS 4 MG/ML VIAL IV ONE (12:00)
--- NOTE | 2017-08-17 12:01 | HHI.PR ---
Subjective Remarks Feeling ok Objective Vital Signs Date Time Temp Pulse Resp B/P (MAP) Pulse Ox O2 Delivery O2 Flow Rate FiO2 08/17/17 08:30 98 Room Air 08/17/17 08:30 99.4 91 19 122/77 (92) 98 08/17/17 07:17 98 21 08/17/17 06:00 80 08/17/17 05:00 78 08/17/17 04:00 Room Air 08/17/17 04:00 98.1 76 18 136/82 (100) 98 08/17/17 04:00 76 08/17/17 03:00 74 08/17/17 02:00 70 08/17/17 01:00 77 08/17/17 00:00 Room Air 08/17/17 00:00 83 08/17/17 00:00 98.4 83 18 120/71 (87) 96 08/16/17 23:00 78 08/16/17 22:00 67 08/16/17 21:00 70 08/16/17 20:00 87 08/16/17 20:00 Room Air 08/16/17 20:00 98.1 87 18 135/76 (95) 97 08/16/17 18:00 74 08/16/17 16:00 98.8 82 18 124/76 (92) 98 08/16/17 16:00 82 08/16/17 14:00 74 08/16/17 12:54 98.3 75 16 92 Room Air 08/16/17 12:45 80 16 120/74 (89) 93 Room Air 08/16/17 12:41 98.0 80 16 119/72 (88) 95 Room Air I/O 08/16/17 08/16/17 08/16/17 08/17/17 08/17/17 08/17/17 07:00 15:00 23:00 07:00 15:00 23:00 Intake Total 480 ml 300 ml 480 ml 750 ml Output Total 700 ml Balance -220 ml 300 ml 480 ml 750 ml Intake Oral 480 ml 480 ml 750 ml IV Total 0 ml Other 300 ml Output Urine Total 700 ml # Voids 3 4 # Bowel Movements 0 0 1 Result Diagram: 08/17/17 0458 08/17/17 0458 Imaging Alert, fully oriented Lungs: ventilated Heart: S1, S2 regular, no gallop Abdomen: soft, no mass Ext: no edema Last Impressions Brain MRI 08/15/17 0000 Signed Impressions: Service Date/Time: Tuesday, August 15, 2017 15:23 - CONCLUSION: No acute intracranial findings. Jose Preston MD Head CT 08/14/17 0000 Signed Impressions: Service Date/Time: Monday, August 14, 2017 15:04 - CONCLUSION: Normal examination for a patient of this age. Gabe Delgado MD Current Medications Medications (Trade) Dose Ordered Sig/Maday Route Start Time Stop Time Status Last Admin (NS Flush) 2 ml UNSCH PRN IV FLUSH 08/14/17 12:30 (NS Flush) 2 ml BID IV FLUSH 08/14/17 21:00 08/17/17 08:47 (Tylenol) 650 mg Q4H PRN PO 08/14/17 12:30 (Lovenox Inj) 40 mg Q24H SQ 08/14/17 13:00 08/16/17 13:22 (Narcan Inj) 0.4 mg UNSCH PRN IV PUSH 08/14/17 12:30 (Helen-Colace) 1 tab BID PO 08/14/17 21:00 08/17/17 08:47 (Milk Of Magnesia Liq) 30 ml Q12H PRN PO 08/14/17 12:30 (Senokot) 17.2 mg Q12H PRN PO 08/14/17 12:30 (Dulcolax Supp) 10 mg DAILY PRN RECTAL 08/14/17 12:30 (Lactulose Liq) 30 ml DAILY PRN PO 08/14/17 12:30 Amiodarone HCl 450 mg/Sodium Chloride 250 ml @ 33.33 mls/ hr Q7H31M PRN IV 08/14/17 15:30 Potassium Chloride 100 ml @ 50 mls/hr Q2H PRN IV 08/14/17 16:45 Potassium Chloride 100 ml @ 50 mls/hr Q2H PRN IV 08/14/17 16:45 (K-Lyte Cl Eff) 50 meq UNSCH PRN PO 08/14/17 16:45 Potassium Chloride 100 ml @ 25 mls/hr UNSCH PRN IV 08/14/17 16:45 Potassium Chloride 100 ml @ 50 mls/hr Q2H PRN IV 08/14/17 16:45 Magnesium Sulfate 4 gm/Sodium Chloride 100 ml @ 50 mls/hr UNSCH PRN IV 08/14/17 16:45 (Mag-Ox) 800 mg UNSCH PRN PO 08/14/17 16:45 Magnesium Sulfate 2 gm/Sodium Chloride 100 ml @ 50 mls/hr UNSCH PRN IV 08/14/17 16:45 (K-Phos) 2,000 mg Q4H PRN PO 08/14/17 16:45 Sodium Phosphate 30 mmol/Sodium Chloride 250 ml @ 42 mls/hr UNSCH PRN IV 08/14/17 16:45 (K-Phos) 2,000 mg UNSCH PRN PO/TUBE 08/14/17 16:45 Potassium Phosphate 30 mmol/ Sodium Chloride 260 ml @ 42 mls/hr UNSCH PRN IV 08/14/17 16:45 (Vimpat) 100 mg BID PO 08/16/17 09:00 08/17/17 08:47 (Tigan Inj) 200 mg Q6H PRN IM 08/15/17 20:30 08/16/17 20:15 Lactated Ringer's 1,000 ml @ 30 mls/hr Q24H PRN IV 08/16/17 06:45 08/19/17 06:44 (Betadine 5% Antisepsis Kit) 1 applic MOBILE DESIGNER PRN EACH NARE 08/16/17 06:45 08/19/17 06:44 (Chlorhexidine 2% Cloth) 3 pack MOBILE DESIGNER PRN TOPICAL 08/16/17 06:45 08/19/17 06:44 Miscellaneous Information ALL NURSING DEPARTME... UNSCH PRN .XX 08/16/17 13:00 08/17/17 12:59 Assessment and Plan Problem List: (1) Syncope and collapse ICD Codes: R55 - Syncope and collapse Plan: Patient stable No new VT episode No new syncopal episode Doing better EP study will be performed. If tachy induced, ICD will be inserted Case extensively discussed with patient and family (2) V-tach ICD Codes: I47.2 - Ventricular tachycardia Julissa Brooks MD Aug 17, 2017 12:01
[2017-08-17 12:58] LABS: INTERNATIONAL NORMALIZED RATIO 1.1 RATIO; PROTHROMBIN TIME - PATIENT 11.2 SEC (9.8-11.6)
[2017-08-17] MEDS: ENOXAPARIN SODIUM 40 MG/0.4 ML SYRINGE SQ SCH (13:00)
[2017-08-17] MEDS: POTASSIUM CHLORIDE INJ 40 MEQ in SODIUM CHLORID 0.9% 500 ML INJ 500 ML IV SCH ×2 (13:00→18:12)
--- NOTE | 2017-08-17 14:23 | HHI.GIFU ---
Subjective Remarks Pt resting in bed, friend at bedside. n/v improved, cites lingering epigastric discomfort. (Aura Bourgeois) Objective Vitals I&O Vital Signs Date Time Temp Pulse Resp B/P (MAP) Pulse Ox O2 Delivery O2 Flow Rate FiO2 08/17/17 12:15 98.3 80 19 133/82 (99) 98 08/17/17 08:30 98 Room Air 08/17/17 08:30 99.4 91 19 122/77 (92) 98 08/17/17 07:17 98 21 08/17/17 06:00 80 08/17/17 05:00 78 08/17/17 04:00 Room Air 08/17/17 04:00 98.1 76 18 136/82 (100) 98 08/17/17 04:00 76 08/17/17 03:00 74 08/17/17 02:00 70 08/17/17 01:00 77 08/17/17 00:00 Room Air 08/17/17 00:00 83 08/17/17 00:00 98.4 83 18 120/71 (87) 96 08/16/17 23:00 78 08/16/17 22:00 67 08/16/17 21:00 70 08/16/17 20:00 87 08/16/17 20:00 Room Air 08/16/17 20:00 98.1 87 18 135/76 (95) 97 08/16/17 18:00 74 08/16/17 16:00 98.8 82 18 124/76 (92) 98 08/16/17 16:00 82 I/O 08/16/17 08/16/17 08/16/17 08/17/17 08/17/17 08/17/17 07:00 15:00 23:00 07:00 15:00 23:00 Intake Total 480 ml 300 ml 480 ml 750 ml Output Total 700 ml Balance -220 ml 300 ml 480 ml 750 ml Intake Oral 480 ml 480 ml 750 ml IV Total 0 ml Other 300 ml Output Urine Total 700 ml # Voids 3 4 # Bowel Movements 0 0 1 Laboratory Laboratory Tests Test 08/17/17 04:58 08/17/17 12:15 White Blood Count 13.9 Red Blood Count 4.23 Hemoglobin 12.8 Hematocrit 37.7 Mean Corpuscular Volume 89.2 Mean Corpuscular Hemoglobin 30.3 Mean Corpuscular Hemoglobin Concent 34.0 Red Cell Distribution Width 13.7 Platelet Count 293 Mean Platelet Volume 8.3 Blood Urea Nitrogen 10 Creatinine 0.63 Random Glucose 75 Calcium Level 8.5 Phosphorus Level 2.1 Magnesium Level 2.3 Sodium Level 139 Potassium Level 3.3 Chloride Level 107 Carbon Dioxide Level 23.0 Anion Gap 9 Estimat Glomerular Filtration Rate 110 Prothrombin Time 11.2 Prothromb Time International Ratio 1.1 Imaging Last Impressions Brain MRI 08/15/17 0000 Signed Impressions: Service Date/Time: Tuesday, August 15, 2017 15:23 - CONCLUSION: No acute intracranial findings. Jose Preston MD Head CT 08/14/17 0000 Signed Impressions: Service Date/Time: Monday, August 14, 2017 15:04 - CONCLUSION: Normal examination for a patient of this age. Gabe Delgado MD Physical Exam HEENT: PERRL; normocephalic; atraumatic; no jaundice CHEST: CTA CARDIAC: RRR ABDOMEN: Soft, nondistended, mild epigastric tenderness; no hepatosplenomegaly ; bowel sounds are present in all four quadrants. EXTREMITIES: No clubbing, cyanosis, or edema. SKIN: Normal; no rash; no jaundice. TRAVELING PASSENGER AGENT: No focal deficits; alert and oriented times three. (Aura Bourgeois) Assessment and Plan Assessment: (1) Intractable nausea and vomiting ICD Codes: R11.2 - Nausea with vomiting, unspecified Plan 31 yo female with n/v, epigastric pain, unclear etiology. s/p EGD 08/16/17 that was normal, bx are pending. could be cyclic vomiting. pt regular user marijuana. Today n/v improved, cites lingering epigastric tenderness/soreness. - leukocytosis - mild elevation 13.9 PLAN - await bx - await GES - monitor labs - NPO 4 h before GES - mariijuana cessation - supportive care pt seen by myself and Dr Khanna and this note is written on his behalf (Aura Bourgeois) Plan patient was seen and examined, agree with above note, will get EP study today and GES tomorrow, no vomiting today, still MEP abd discomfort (Simran Khanna MD) Aura Bourgeois Aug 17, 2017 14:23 Simran Khanna MD Aug 17, 2017 15:21
--- NOTE | 2017-08-17 15:55 | HHI.PR ---
Subjective Remarks The patient is in bed she has some nausea and received to Jose Miguel. No vomiting however she is not eating. Denies any palpitations or chest pain. No diaphoresis. No lightheadedness. Plan for EP study by Dr. Contreras Objective Vitals Vital Signs Date Time Temp Pulse Resp B/P (MAP) Pulse Ox O2 Delivery O2 Flow Rate FiO2 08/17/17 12:15 98.3 80 19 133/82 (99) 98 08/17/17 08:30 98 Room Air 08/17/17 08:30 99.4 91 19 122/77 (92) 98 08/17/17 07:17 98 21 08/17/17 06:00 80 08/17/17 05:00 78 08/17/17 04:00 Room Air 08/17/17 04:00 98.1 76 18 136/82 (100) 98 08/17/17 04:00 76 08/17/17 03:00 74 08/17/17 02:00 70 08/17/17 01:00 77 08/17/17 00:00 Room Air 08/17/17 00:00 83 08/17/17 00:00 98.4 83 18 120/71 (87) 96 08/16/17 23:00 78 08/16/17 22:00 67 08/16/17 21:00 70 08/16/17 20:00 87 08/16/17 20:00 Room Air 08/16/17 20:00 98.1 87 18 135/76 (95) 97 08/16/17 18:00 74 08/16/17 16:00 98.8 82 18 124/76 (92) 98 08/16/17 16:00 82 I/O 08/16/17 08/16/17 08/16/17 08/17/17 08/17/17 08/17/17 07:00 15:00 23:00 07:00 15:00 23:00 Intake Total 480 ml 300 ml 480 ml 750 ml Output Total 700 ml Balance -220 ml 300 ml 480 ml 750 ml Intake Oral 480 ml 480 ml 750 ml IV Total 0 ml Other 300 ml Output Urine Total 700 ml # Voids 3 4 # Bowel Movements 0 0 1 Result Diagram: 08/17/17 0458 08/17/17 0458 Imaging Last Impressions Brain MRI 08/15/17 0000 Signed Impressions: Service Date/Time: Tuesday, August 15, 2017 15:23 - CONCLUSION: No acute intracranial findings. Jose Preston MD Head CT 08/14/17 0000 Signed Impressions: Service Date/Time: Monday, August 14, 2017 15:04 - CONCLUSION: Normal examination for a patient of this age. Gabe Delgado MD Objective Remarks GENERAL: In no acute distress but patient did a lot of eye rolling during the interview. CARDIOVASCULAR: Regular rate and rhythm without murmurs, gallops, or rubs. RESPIRATORY: Breath sounds equal bilaterally. No accessory muscle use. GASTROINTESTINAL: Abdomen soft, non-tender, nondistended. MUSCULOSKELETAL: No cyanosis, or edema. BACK: Nontender without obvious deformity. No CVA tenderness. A/P Problem List: (1) V-tach ICD Code: I47.2 - Ventricular tachycardia (2) SIRS (systemic inflammatory response syndrome) ICD Code: R65.10 - Systemic inflammatory response syndrome (SIRS) of non- infectious origin without acute organ dysfunction (3) Intractable nausea and vomiting ICD Code: R11.2 - Nausea with vomiting, unspecified Assessment and Plan 31-year-old female with chronic long-standing history of nausea and vomiting times at least 8 years and chronic marijuana use who presented with intractable emesis and epigastric pain Cyclic hyperemesis and epigastric pain -Epigastric pain resolves when nausea/emesis resolved. She is asymptomatic at the moment. EGD done today which was negative. -Urine drug screen positive for marijuana. Patient stated that she smokes marijuana. -Most likely chronic intractable emesis secondary to chronic marijuana use. Education given to patient to see if she stops marijuana use to see if her symptoms will resolved since patient is asymptomatic at the moment since she has not been using marijuana during hospital course. Patient did not like the idea and it made her upset. -Patient is scheduled for a gastric emptying study tomorrow. At the moment she does not have any pain will need to discontinue all pain medication since it can also interfere with results of the gastric emptying study. Torsades -Status post magnesium given. Most likely secondary to hypomagnesemia from emesis. -Epic Analyst following. Per storage wharfage clerk ICD versus EP study on Thursday. -Avoid prolonged QT medication. Syncope, multiple episodes - appears to be more psychogenic in origin - Seemed to be anxiety induced. -Neurologist consulted. Stated that if she has any episodes during hospital course May consider further workup but most likely secondary to psychiatric disorders such as anxiety. Marijuana dependence -Education given on cessation. Discharge Planning Plan for EP study Continue to monitor over telemetry. Yahaira Means MD Aug 17, 2017 15:55
[2017-08-17] MEDS ORDERED: HEPARIN-NS/PF INJ 500 ML ONE (18:07)
[2017-08-17] MEDS ORDERED: FAMOTIDINE 20 MG/2 ML VIAL ONE ×2 (18:49)
[2017-08-17] MEDS ORDERED: ISOPROTERENOL HCL 1 MG/5 ML AMP ONE (19:04)
[2017-08-17] MEDS ORDERED: SODIUM CHLOR 0.9% 250 ML INJ 250 ML IV PRN (19:15)
[2017-08-17] MEDS ORDERED: BACITRACIN OINT 0.9 GM PKT TOP ONE (19:15)
[2017-08-17] MEDS ORDERED: LIDOCAINE HCL 1% 50 ML VIAL INFIL PRN (19:15)
[2017-08-17] MEDS ORDERED: LORazepam 2 MG/ML VIAL IV PUSH PRN (19:15)
[2017-08-17] MEDS ORDERED: ATROPINE SULFATE 1 MG/ML VIAL IV PUSH PRN (19:15)
[2017-08-17] MEDS ORDERED: ONDANSETRON HCL 4 MG/2 ML VIAL IV PUSH PRN (19:15)
[2017-08-17] MEDS ORDERED: oxyCODONE/ACETAMINOPHEN 5 MG/325 MG TAB PO PRN ×2 (19:15)
--- NOTE | 2017-08-17 19:30 | CATHPROC ---
Patient Name: FELICIA SCOTT Study #: [id number] Initial MD: Julissa Brooks Date of : 1985 Study Date: 08/17/2017 Cardiac Catheterization Report 08/17/2017 7:30:27 PM Financial #: [id number] 1 of 9 Patient Name: FELICIA SCOTT Study #: [id number] Initial MD: Julissa Brooks Date of : 1985 Study Date: 08/17/2017 Entire Case Report Patient Information Patient Name FELICIA SCOTT Date of 1985 Age 31 years Financial # [id number] Gender F AlternateID Lab Number 6 Room Number 253 Height (in) 61.0 Height (cm) 154.9 BSA 1.62 Weight (lbs) 139.7 Weight (kg) 63.5 Patient Address/Phone Number Home Address [facility] Home Phone Number [phone] [id number] Study Information Study Number Admission Scheduled Start Study Start [id number] Aug 14 2017 1:22PM 08/17/2017 Aug 17 2017 5:20PM [place] Service Cardiac Pacer/ICD Admit Source Facility Department Other [facility] - Spanish Speaking [place] Physician and Clinical Staff Initial Julissa Fink Shoe Designer Clare Coats,JAQUI Other Anesthesia, NETWORK CONTRACT MANAGER Recorder Yoselin Gomes,STEVE Scrub Mookie Mohr,RT(R) Procedures Performed Procedure Ablation Procedure 08/17/2017 7:30:27 PM Financial #: [id number] 2 of 9 Patient Name: FELICIA SCOTT Study #: [id number] Initial MD: Julissa Brooks Date of : 1985 Study Date: 08/17/2017 Equipment Time Dragline Engineer Description Size Mfg Part Number Used/Scraped [id number] 17:23 [employer] PACK, CCL CUSTOM * Used *[id number] 17:23 [employer] PACER CUEVAS, LIMB * 2530 *[id number] Used [id number] 17:23 [employer] MEDICAL BLANKET,WARM AIR CCL * Used *[id number] 17:56 [employer] MEDICAL CATHETER, JSN, QUAD FR 5 Used *[id number] 17:56 [employer] MEDICAL CATHETER, JSN, QUAD FR 5 Used *[id number] 17:56 [employer] MEDICAL CATHETER, JSN, QUAD FR 5 Used *[id number] 17:56 [employer] MEDICAL CATHETER, JSN, QUAD FR 5 Used *[id number] 17:56 [employer] MEDICAL SHEATH, EPS, FR5 FAST CATH FR 5 Used *[id number] 943769 17:56 [employer] MED[employer] SHEATH, EPS, FR5 FAST CATH FR 5 Used *[id number] [id number] 17:56 [employer] MEDICAL SHEATH, EPS, FR5 FAST CATH FR 5 Used *[id number] 17:56 [employer] MEDICAL SHEATH, EPS, FR6 FAST CATH FR 6 Used *[id number] Insurance Information Insurance Payor Medicaid Third Alliance Party Third Alliance Party Number MEDICAID [place] [place]: Allergies Allergy Reaction No Known Allergies Labs Hgb (g/dl) Hct (%) RBC (MIL/MM3) WBC (l/cumm) Platelets (thousands) 11.60-17.00 35.00-51.00 4.00-5.90 4.00-11.00 150.00-450.00 12.0 37 4 13 293 Glucose (mg/dl) BUN (mg/dl) Creatinine (mg/dl) BUN:Creatinine (1:x) 74.00-106.00 7.00-18.00 0.50-1.30 10.00-20.00 75 10 0.6 16.7 Na (meq/l) K (meq/l) 136.00-145.00 3.50-5.10 139 3.3 08/17/2017 7:30:27 PM Financial #: [id number] 3 of 9 Patient Name: FELICIA SCOTT Study #: [id number] Initial MD: Julissa Brooks Date of : 1985 Study Date: 08/17/2017 INR (PTT:PT) 0.90-1.10 1.1 Medication Medication Total Dose (Bolus/Oral) Medication Total Dosage/Unit 1% XYLOCAINE 20 mL Medications (Bolus/Oral) Medication Time Given Dosage/Unit Administered By Reason 1% XYLOCAINE 08/17/2017 6:43:53 PM 20 mL Julissa Brooks 20 mL 1% XYLOCAINE given in lab by Julissa Brooks in Right Groin via Subcutaneous. Medication (Drip) Medication Time Given Dosage/Unit Concentration/Unit Diluent (ml) Solution ISUPREL 08/17/2017 7:07:54 PM 4 mcg/min 1 mg 250 NaCl .9 4 mcg/min ISUPREL given in lab by Anesthesia, NETWORK CONTRACT MANAGER via Peripheral IV. Pump/Drip Flow = 60 ml/hr using NaCl .9 with a concentration of 1 mg in 250 ml. Ordered by Julissa Brooks. Reason: As per physicians verbal order. 08/17/2017 7:30:27 PM Financial #: [id number] 4 of 9 Patient Name: FELICIA SCOTT Study #: [id number] Initial MD: Julissa Brooks Date of : 1985 Study Date: 08/17/2017 Initial Case Assessment Cardiovascular HR Rhythm NIBP Chest Pain 83 sr 143/90 0 Edema Present Skin color Skin None Normal Warm Dry Circulatory - Right Pulses Dorsalis Pedis 2 Scale (0,1,2,3,4,d) Circulatory - Left Pulses Dorsalis Pedis 2 Scale (0,1,2,3,4,d) Circulatory - Lower Extremities Color Lower Right Color Lower Left Normal Normal Neurological State Oriented to time-place- Alert Moves all extremities person Respiration - General Respiration Rate SpO2 (%) (B/min) 18 99 08/17/2017 7:30:27 PM Financial #: [id number] 5 of 9 Patient Name: FELICIA SCOTT Study #: [id number] Initial MD: Julissa Brooks Date of : 1985 Study Date: 08/17/2017 Final Case Assessment Cardiovascular HR Rhythm NIBP Chest Pain 90 sr 127/76 0 Edema Present Skin color Skin None Normal Warm Dry Circulatory - Right Pulses Dorsalis Pedis 2 Scale (0,1,2,3,4,d) Circulatory - Left Pulses Dorsalis Pedis 2 Scale (0,1,2,3,4,d) Circulatory - Lower Extremities Color Lower Right Color Lower Left Normal Normal Neurological State Oriented to time-place- Alert Moves all extremities person Respiration - General Respiration Rate SpO2 (%) (B/min) 18 98 Chronological Log Time Study Chronological Log 17:44:40 Patient arrived via Bed. 17:44:50 Patient Name, D.O.B, / Armband Verified By R.N. 17:45:19 Consent signed by the physician and the patient and verified by the Spanish Speaking [place] staff. 17:45:23 Pre-op and post- op instructions given; patient acknowledges understanding of instructions. 17:45:26 Verbal Stimulation=2 Physical Stimulation=2 Airway=2 Respiration=2 TOTAL=8. (0=absent, 1=li mited, 2=present) 17:45:35 Skin Breakdown- none per pt 17:46:32 Patient has been NPO for More than 6Hrs. 17:46:46 Patient Warmer Placed on the Table. 17:46:49 Disposable Defibrillator Pads Placed On Patient. 08/17/2017 7:30:27 PM Financial #: [id number] 6 of 9 Patient Name: FELICIA SCOTT Study #: [id number] Initial MD: Julissa Brooks Date of : 1985 Study Date: 08/17/2017 17:46:56 Nelly Prominences Protected 17:47:00 A # 20 IV was noted in the Wrist (right). Grade = 0 0.9ns kvo 17:47:21 A # 22 IV was noted in the Wrist (left). Grade = 0 0.9ns kvo et potassium drip infusing fro m floor at 75cc/hr 17:48:17 History and physical on the chart or being dictated. Assessment: Initial Case, HR=83 BPM, Rhythm=sr, STHD=548/90 mmhg, Chest Pain=0, Edema=None, Col or=Normal, Skin = Warm, Dry Right Pulses: Ever Ped=2 Left Pulses: Ever Ped=2 17:51:22 Lower Right Extremities: Color=Normal Lower Left Extremities: Color=Normal Neurological: State=Alert, Ox3, [place] Respiration: Resp=18 B/min, SpO2=99 % 17:52:52 Table restraints applied according to hospital policy 17:52:57 Bovie ground pad applied to: right thigh 17:52:58 2% CHLORHEXIDINE GLUCONATE WASH AND NASAL SWIPE DONE PRIOR TO PROCEDURE. 18:00:20 Reference ECG taken 18:09:47 MD arrived. 18:11:28 Bilateral groins prepped with 2% chlorhexidine, and draped after a 3 minute waiting time. 18:33:55 Anesthesia at bedside. Assumes care of patient. Deborah Time Out. Correct patient, procedure, procedure equipment, site and side verified with physicia n present. Time 18:43:00 concurred by MD, individual staff and NETWORK CONTRACT MANAGER. Time Out #2 - Consents verified, patient in correct position, all results are labled and displa yed, safety precautions 18:43:19 taken, antibiotics administered. Time out concurred by MD, individual staff and NETWORK CONTRACT MANAGER in procedu re 18:43:36 Case Start 18:43:53 20 mL 1% XYLOCAINE given in lab by Julissa Brooks in Right Groin via Subcutaneous. 18:44:47 Vascular access was obtained in the Fem Vein (right). 18:44:51 Vascular access was obtained in the Fem Vein (right). 18:44:55 Vascular access was obtained in the Fem Vein (right). 18:45:02 Vascular access was obtained in the Fem Vein (right). 18:45:32 A SHEATH, EPS, FR5 FAST CATH FR 5 was advanced into the Fem Vein (right) using the Modified Seldinger technique. 18:45:40 A SHEATH, EPS, FR5 FAST CATH FR 5 was advanced into the Fem Vein (right) using the Modified Seldinger technique. 18:45:47 A SHEATH, EPS, FR5 FAST CATH FR 5 was advanced into the Fem Vein (right) using the Modified Seldinger technique. 18:45:51 A SHEATH, EPS, FR6 FAST CATH FR 6 was advanced into the Fem Vein (right) using the Modified Seldinger technique. 18:46:58 Lizeth NETWORK CONTRACT MANAGER taking over A CATHETER, JSN, QUAD FR 5 was advanced vis Fem Vein (right) and placed in the CS. Placement wa s visually 18:47:13 confirmed under fluoroscopy. A CATHETER, JSN, QUAD FR 5 was advanced vis Fem Vein (right) and placed in the HIS. Placement w as visually 18:49:09 confirmed under fluoroscopy. A CATHETER, JSN, QUAD FR 5 was advanced vis Fem Vein (right) and placed in the RVA. Placement w as visually 18:50:53 confirmed under fluoroscopy. A CATHETER, JSN, QUAD FR 5 was advanced vis Fem Vein (right) and placed in the HRA. Placement w as visually 18:52:25 confirmed under fluoroscopy. 18:53:14 EPS in progress 08/17/2017 7:30:27 PM Financial #: [id number] 7 of 9 Patient Name: FELICIA SCTOT Study #: [id number] Initial MD: Julissa Brooks Date of : 1985 Study Date: 08/17/2017 4 mcg/min ISUPREL given in lab by Anesthesia, NETWORK CONTRACT MANAGER via Peripheral IV. Pump/Drip Flow = 60 ml/h r using NaCl .9 with 19:07:54 a concentration of 1 mg in 250 ml. Ordered by Julissa Brooks. Reason: As per physicians verbal order. 19:12:31 Isuprel off. 19:12:56 EP Procedure was performed. 19:13:03 Ablation procedure performed: EPS. none 19:13:12 EPS complete. 19:14:31 Catheter(s) removed without difficulty 19:15:30 Sheaths removed; pressure applied to access sites. 19:19:07 Case End 19:20:17 CPCU called. Spoke to Brenden 19:20:46 Bedside Report will be given. Assessment: Final Case, HR=90 BPM, Rhythm=sr, EXKO=223/76 mmhg, Chest Pain=0, Edema=None, [place] r=Normal, Skin = Warm, Dry Right Pulses: Ever Ped=2 Left Pulses: Ever Ped=2 19:25:13 Lower Right Extremities: Color=Normal Lower Left Extremities: Color=Normal Neurological: State=Alert, Ox3, M[place] Respiration: Resp=18 B/min, SpO2=98 % 19:28:44 Sterile dressing applied to site 19:31:15 No case complications noted. 19:31:18 Cine recording checked. 19:38:53 [facility] Study - Contrast Media Used In Study Contrast Total Opened (mL) Total Used (mL) Total Wasted (mL) Unspecified 0 0 0 End Study - Maximum Contrast Load Max Contrast Load (mL) 529.2 End Study - Radiation Exposure Fluoro Time (minutes) 2.1 End Study - Sheaths Sheaths Pulled By Sheath Hold Time (min) Mookie Mohr 15 08/17/2017 7:30:27 PM Financial #: [id number] 8 of 9 Patient Name: FELICIA SCOTT Study #: [id number] Initial MD: Julissa Brooks Date of : 1985 Study Date: 08/17/2017 End Study - Patient Disposition Complications Transferred To Interventional Outcome No Telemetry Bed successful 08/17/2017 7:30:27 PM Financial #: [id number] 9 of 9
[2017-08-17] MEDS ORDERED: MIDAZOLAM HCL 2 MG/2 ML VIAL ONE (19:37)
[2017-08-17] MEDS ORDERED: HYDROmorphone HCL PF 2 MG/ML VIAL IV ONE (23:45)
[2017-08-18] VITALS (10 sets, daily range): BP systolic 109–129; BP diastolic 67–90; PULSE 52–88; RESP 18–20; TEMP 97.8–98.7; O2SAT 98–99
[2017-08-18 06:32] LABS: AUTOMATED NEUTROPHIL # 9.2 TH/MM3 (1.8-7.7); BASOPHIL # 0.1 TH/MM3 (0-0.2); BASOPHIL % 0.6 % (0.0-2.0); HEMATOCRIT 38.3 % (35.0-46.0); LYMPH % 8.8 % (9.0-44.0); LYMPHOCYTE # 0.9 TH/MM3 (1.0-4.8); MEAN CELL VOLUME 91.3 FL (80.0-100.0); MEAN PLATELET VOLUME 7.8 FL (7.0-11.0); MONO % 2.9 % (0.0-8.0); MONOCYTE # 0.3 TH/MM3 (0-0.9); NEUT % 87.7 % (16.0-70.0); PLATELET COUNT 311 TH/MM3 (150-450); RED BLOOD COUNT 4.19 MIL/MM3 (4.00-5.30); RED CELL DISTRIBUTION WIDTH 13.5 % (11.6-17.2); WHITE BLOOD COUNT 10.5 TH/MM3 (4.0-11.0)
[2017-08-18 07:05] LABS: BICARBONATE 22.7 MEQ/L (21.0-32.0); CALCIUM 8.5 MG/DL (8.5-10.1); CREATININE 0.71 MG/DL (0.50-1.00); MAGNESIUM 2.2 MG/DL (1.5-2.5)
[2017-08-18 07:07] LABS: PHOSPHORUS 3.3 MG/DL (2.5-4.9)
[2017-08-18] MEDS ORDERED: LACO100 PO (08:51)
--- NOTE | 2017-08-18 08:53 | HHI.DCPOC ---
Discharge Care Plan Goals to Promote Your Health * To prevent worsening of your condition and complications * To maintain your health at the optimal level Directions to Meet Your Goals Take your medications as prescribed Follow your dietary instruction Follow activity as directed Keep your appointments as scheduled Take your immunizations and boosters as scheduled If your symptoms worsen call your PCP, if no PCP go to Urgent Care Center or Emergency Room Smoking is Dangerous to Your Health. Avoid second hand smoke Call the 24-hour hour crisis hotline for domestic abuse at Yahaira Means MD Aug 18, 2017 08:53
[2017-08-18] MEDS ORDERED: OXYC1TAB63 PO (08:55)
[2017-08-18] MEDS: LACOSAMIDE 100 MG TAB PO SCH ×2 (09:00→09:43)
[2017-08-18] MEDS: DOCUSATE SODIUM 50 MG/SENNA 8.6 MG TAB PO SCH ×3 (09:00→21:00)
--- NOTE | 2017-08-18 09:12 | HHI.DS ---
Discharge Summary Admission Date Aug 14, 2017 at 13:22 Discharge Date: Aug 18, 2017 Admitting Diagnosis (1) V-tach ICD Code: I47.2 - Ventricular tachycardia Diagnosis: Principal (2) SIRS (systemic inflammatory response syndrome) ICD Code: R65.10 - Systemic inflammatory response syndrome (SIRS) of non- infectious origin without acute organ dysfunction Diagnosis: Principal (3) Intractable nausea and vomiting ICD Code: R11.2 - Nausea with vomiting, unspecified Diagnosis: Principal (4) Syncope and collapse ICD Code: R55 - Syncope and collapse Procedures egd EP study Brief History - From Admission Patient is a 31-year-old female with past medical history of GERD and history of Xanax use as a teenager, who presented to the ER with complaints of intractable nausea, palpitations or dizziness sounds without. Patient is found with increased QT interval and noted with V. tach while in the emergency room. She received a bolus of amiodarone. Patient instructed to the [facility] for further evaluation. Cardiology was contacted Dr. Rodriguez. The patient is still no associated, with dry heaves and she complains of severe epigastric pain. Epigastric pain is nonradiating. Denies having any chest pain or palpitations at this time. No fever or chills. No cough. Denies any suprapubic pain or urinary complaints. Says the only medication that she is taking his omeprazole [id number] for GERD. However she stopped taking GERD medications 3 months ago. CBC/BMP: 08/18/17 0451 08/18/17 0451 Significant Findings Laboratory Tests Test 08/15/17 16:44 08/16/17 04:27 08/16/17 11:40 08/17/17 04:58 White Blood Count 12.5 TH/MM3 (4.0-11.0) 13.9 TH/MM3 (4.0-11.0) Neutrophils # (Auto) 8.7 TH/MM3 (1.8-7.7) Calcium Level 8.4 MG/DL (8.5-10.1) Phosphorus Level 1.2 MG/DL (2.5-4.9) 1.9 MG/DL (2.5-4.9) 2.1 MG/DL (2.5-4.9) Potassium Level 3.3 MEQ/L (3.5-5.1) 3.3 MEQ/L (3.5-5.1) Chloride Level 108 MEQ/L (98-107) Carbon Dioxide Level 20.5 MEQ/L (21.0-32.0) Troponin I LESS THAN 0.02 NG/ML Urine Cannabinoids Screen POS (NEG) Test 08/17/17 12:15 08/18/17 04:51 Neutrophils (%) (Auto) 87.7 % (16.0-70.0) Lymphocytes (%) (Auto) 8.8 % (9.0-44.0) Neutrophils # (Auto) 9.2 TH/MM3 (1.8-7.7) Lymphocytes # (Auto) 0.9 TH/MM3 (1.0-4.8) Chloride Level 108 MEQ/L (98-107) Imaging Last Impressions Brain MRI 08/15/17 0000 Signed Impressions: Service Date/Time: Tuesday, August 15, 2017 15:23 - CONCLUSION: No acute intracranial findings. Jose Preston MD Head CT 08/14/17 0000 Signed Impressions: Service Date/Time: Monday, August 14, 2017 15:04 - CONCLUSION: Normal examination for a patient of this age. Gabe Delgado MD PE at Discharge GENERAL: In no acute distress but patient did a lot of eye rolling during the interview. CARDIOVASCULAR: Regular rate and rhythm without murmurs, gallops, or rubs. RESPIRATORY: Breath sounds equal bilaterally. No accessory muscle use. GASTROINTESTINAL: Abdomen soft, non-tender, nondistended. MUSCULOSKELETAL: No cyanosis, or edema. BACK: Nontender without obvious deformity. No CVA tenderness. Pt update on day of discharge Patient in nad. Says abd cramps improved. K is better controlled. Wants to go home. Less nausea. No v/d/c. Discussed with the patient and adviced stopping marijuana as might be associated with cyclic vomiting. Hospital Course 31-year-old female with chronic long-standing history of nausea and vomiting times at least 8 years and chronic marijuana use who presented with intractable emesis and epigastric pain Cyclic hyperemesis and epigastric pain -Epigastric pain resolves when nausea/emesis resolved. She is asymptomatic at the moment. EGD done today which was negative. -Urine drug screen positive for marijuana. Patient stated that she smokes marijuana. -Most likely chronic intractable emesis secondary to chronic marijuana use. Education given to patient to see if she stops marijuana use to see if her symptoms will resolved since patient is asymptomatic at the moment since she has not been using marijuana during hospital course. Patient did not like the idea and it made her upset. -Patient is scheduled for a gastric emptying however can be done as OP . At the moment she does not have any pain will need to discontinue all pain medication since it can also interfere with results of the gastric emptying study.Patient to follow up as OP with GI. Electrolytes better - Advised cessation of marijuana use as might be the culprit for cyclic vomiting , Counselled at length regarding cessation. Torsades -Status post magnesium given. Most likely secondary to hypomagnesemia from emesis. -Pick And Shovel Worker following. Per aesthetician ICD versus EP study on Thursday. -Avoid prolonged QT medication. - Patient had normal EP study Syncope, multiple episodes - appears to be more psychogenic in origin - Seemed to be anxiety induced. -Neurologist consulted. Stated that if she has any episodes during hospital course May consider further workup but most likely secondary to psychiatric disorders such as anxiety. - Poss seizures on EEG, patient has been on meds 9 years ago and has been off x 9 years. Per neuro DC vimpant patient to follow up as OP with her neurology in [place]. Marijuana dependence -Education given on cessation. Discharged in stable condition to follow up as OP with PCP and consultants. Pt Condition on Discharge: Stable Discharge Disposition: Discharge Home Discharge Time: > 30 minutes Discharge Instructions DIET: Follow Instructions for: As Tolerated, No Restrictions Activities you can perform: Regular-No Restrictions Follow up Referrals: Cardiology - 2 Weeks Gastroenterology - 1 Week Neurology - 2 Weeks follow up with your neurology Dr in [place] PCP Follow-up - 3-5 Days New Medications: Promethazine (Phenergan) 25 Mg Tablet 25 MG PO Q6H PRN for NAUSEA OR VOMITING, #20 TAB 0 Refills Yahaira Means MD Aug 18, 2017 09:12
[2017-08-18] MEDS ORDERED: IBUPROFEN 400 MG TAB PO ONE (09:15)
[2017-08-18] MEDS: SODIUM CHLORIDE 0.9% FLUSH 10 ML FLUSH IV FLUSH SCH ×2 (09:43→23:15)
[2017-08-18] MEDS ORDERED: PROM25TA10 PO (10:07)
[2017-08-18] MEDS: ENOXAPARIN SODIUM 40 MG/0.4 ML SYRINGE SQ SCH (13:00)
--- NOTE | 2017-08-18 13:05 | HHI.PR ---
Subjective Remarks Patient in nad. She says she wants to go home. No much nausea. no vomiting. No chest apin , palpitations. Can't have emptying study today because she received sedating meds for ablation yesterday. Has to be off sadation meds for 24 hrs. Patient says she wants to go home. Per GI an be DC and to have the study as OP. However patient changed her mind and says she wants to have the test done here tomorrow. Objective Vitals Vital Signs Date Time Temp Pulse Resp B/P (MAP) Pulse Ox O2 Delivery O2 Flow Rate FiO2 08/18/17 10:08 98 08/18/17 04:00 75 08/18/17 04:00 97.8 75 18 109/67 (81) 98 08/18/17 00:00 78 08/18/17 00:00 98.1 78 18 125/83 (97) 98 08/17/17 23:33 18 08/17/17 20:00 98.5 73 18 125/83 (97) 97 08/17/17 20:00 73 08/17/17 17:00 84 08/17/17 16:00 76 08/17/17 16:00 98.4 73 19 118/80 (93) 96 08/17/17 15:00 73 08/17/17 14:00 86 08/17/17 13:00 82 I/O 08/17/17 08/17/17 08/17/17 08/18/17 08/18/17 08/18/17 07:00 15:00 23:00 07:00 15:00 23:00 Intake Total 750 ml 520 ml 240 ml Balance 750 ml 520 ml 240 ml Intake Oral 750 ml 240 ml IV Total 520 ml # Voids 4 3 2 # Bowel Movements 1 1 Result Diagram: 08/18/17 0451 08/18/17 0451 Imaging Last Impressions Brain MRI 08/15/17 0000 Signed Impressions: Service Date/Time: Tuesday, August 15, 2017 15:23 - CONCLUSION: No acute intracranial findings. Jose Preston MD Head CT 08/14/17 0000 Signed Impressions: Service Date/Time: Monday, August 14, 2017 15:04 - CONCLUSION: Normal examination for a patient of this age. Gabe Delgado MD Objective Remarks GENERAL: In no acute distress but patient did a lot of eye rolling during the interview. CARDIOVASCULAR: Regular rate and rhythm without murmurs, gallops, or rubs. RESPIRATORY: Breath sounds equal bilaterally. No accessory muscle use. GASTROINTESTINAL: Abdomen soft, non-tender, nondistended. MUSCULOSKELETAL: No cyanosis, or edema. BACK: Nontender without obvious deformity. No CVA tenderness. Procedures egd EP study A/P Problem List: (1) V-tach ICD Code: I47.2 - Ventricular tachycardia (2) SIRS (systemic inflammatory response syndrome) ICD Code: R65.10 - Systemic inflammatory response syndrome (SIRS) of non- infectious origin without acute organ dysfunction (3) Intractable nausea and vomiting ICD Code: R11.2 - Nausea with vomiting, unspecified Assessment and Plan 31-year-old female with chronic long-standing history of nausea and vomiting times at least 8 years and chronic marijuana use who presented with intractable emesis and epigastric pain Cyclic hyperemesis and epigastric pain -Epigastric pain resolves when nausea/emesis resolved. She is asymptomatic at the moment. EGD done which was negative. -Urine drug screen positive for marijuana. Patient stated that she smokes marijuana. -Most likely chronic intractable emesis secondary to chronic marijuana use. Education given to patient to see if she stops marijuana use to see if her symptoms will resolved since patient is asymptomatic at the moment since she has not been using marijuana during hospital course. Patient did not like the idea and it made her upset. -Patient is scheduled for a gastric emptying study tomorrow. At the moment she does not have any pain will need to discontinue all pain medication since it can also interfere with results of the gastric emptying study. Torsades -Status post magnesium given. Most likely secondary to hypomagnesemia from emesis. -Senior Graduate Advisor following. Had EP study 08/17/17 and normal. -Avoid prolonged QT medication. Syncope, multiple episodes - appears to be more psychogenic in origin - Seemed to be anxiety induced. -Neurologist consulted. Stated that if she has any episodes during hospital course May consider further workup but most likely secondary to psychiatric disorders such as anxiety. EEG reviewed , per neurology patient to have Vimpant 100 mg po bid , continue as OP and to follow up with neurology as OP. Marijuana dependence -Education given on cessation. Discharge Planning Had EP study and is normal. Plan for gastric emptying study. Cosma,Yahaira MD Aug 18, 2017 13:05
--- NOTE | 2017-08-18 14:02 | HHI.GIFU ---
Subjective Remarks sitting up in bed, eating lunch. Denies n/v, pain improved. Staying for GES tomorrow. Objective Vitals I&O Vital Signs Date Time Temp Pulse Resp B/P (MAP) Pulse Ox O2 Delivery O2 Flow Rate FiO2 08/18/17 10:08 98 08/18/17 04:00 75 08/18/17 04:00 97.8 75 18 109/67 (81) 98 08/18/17 00:00 78 08/18/17 00:00 98.1 78 18 125/83 (97) 98 08/17/17 23:33 18 08/17/17 20:00 98.5 73 18 125/83 (97) 97 08/17/17 20:00 73 08/17/17 17:00 84 08/17/17 16:00 76 08/17/17 16:00 98.4 73 19 118/80 (93) 96 08/17/17 15:00 73 I/O 08/17/17 08/17/17 08/17/17 08/18/17 08/18/17 08/18/17 07:00 15:00 23:00 07:00 15:00 23:00 Intake Total 750 ml 520 ml 240 ml Balance 750 ml 520 ml 240 ml Intake Oral 750 ml 240 ml IV Total 520 ml # Voids 4 3 2 # Bowel Movements 1 1 Laboratory Laboratory Tests Test 08/18/17 04:51 White Blood Count 10.5 Red Blood Count 4.19 Hemoglobin 13.0 Hematocrit 38.3 Mean Corpuscular Volume 91.3 Mean Corpuscular Hemoglobin 31.0 Mean Corpuscular Hemoglobin Concent 34.0 Red Cell Distribution Width 13.5 Platelet Count 311 Mean Platelet Volume 7.8 Neutrophils (%) (Auto) 87.7 Lymphocytes (%) (Auto) 8.8 Monocytes (%) (Auto) 2.9 Eosinophils (%) (Auto) 0.0 Basophils (%) (Auto) 0.6 Neutrophils # (Auto) 9.2 Lymphocytes # (Auto) 0.9 Monocytes # (Auto) 0.3 Eosinophils # (Auto) 0.0 Basophils # (Auto) 0.1 CBC Comment DIFF FINAL Differential Comment Blood Urea Nitrogen 9 Creatinine 0.71 Random Glucose 92 Calcium Level 8.5 Phosphorus Level 3.3 Magnesium Level 2.2 Sodium Level 139 Potassium Level 3.9 Chloride Level 108 Carbon Dioxide Level 22.7 Anion Gap 8 Estimat Glomerular Filtration Rate 96 Imaging Last Impressions Brain MRI 08/15/17 0000 Signed Impressions: Service Date/Time: Tuesday, August 15, 2017 15:23 - CONCLUSION: No acute intracranial findings. Jose Preston MD Head CT 08/14/17 0000 Signed Impressions: Service Date/Time: Monday, August 14, 2017 15:04 - CONCLUSION: Normal examination for a patient of this age. Gabe Delgado MD Physical Exam HEENT: PERRL; normocephalic; atraumatic; no jaundice CHEST: CTA CARDIAC: RRR ABDOMEN: Soft, nondistended, RLQ TTP; no hepatosplenomegaly; bowel sounds are present in all four quadrants. EXTREMITIES: No clubbing, cyanosis, or edema. SKIN: Normal; no rash; no jaundice. ESTATE TAX EXAMINER: No focal deficits; alert and oriented times three. Assessment and Plan Assessment: (1) Intractable nausea and vomiting ICD Codes: R11.2 - Nausea with vomiting, unspecified Plan 08/17/17 31 yo female with n/v, epigastric pain, unclear etiology. s/p EGD that was normal, bx are pending. could be cyclic vomiting. pt regular user marijuana. Today n/v improved, cites lingering epigastric tenderness/soreness. - leukocytosis - mild elevation 13.9 08/18/17 n/v improved, abd pain improving, tolerating diet. GES tomorrow PLAN - await bx - await GES - monitor labs - NPO 4 h before GES - hold pain meds except motrin - mariijuana cessation - supportive care pt seen by myself and Dr Khanna and this note is written on his behalf Aura Bourgeois Aug 18, 2017 14:02
[2017-08-18] MEDS ORDERED: IBUPROFEN 200 MG TAB PO PRN (14:15)
[2017-08-18] MEDS: IBUPROFEN 200 MG TAB PO PRN ×2 (16:57→23:14)
--- NOTE | 2017-08-18 20:18 | HHI.PR ---
Review/Management Daily Summary 08/16 discussed with her EEG findings mri normal she did not received bolus dose Vimpat yest, unclear as to reason to start vimpat 100 bid today office f/u in 1-2 weeks 08/18 seen along with her much participant overall, articulating well i received a call earlier today as pt and wanted to see me they want to stop vimpat or any anticonvulsant medication as she is concerned about being reported to [facility] we do not have any definite evidence of seizure but she had syncope, ?from cardiac source she understands well the reason for this medication and describes her neurologist in [place] had 3 eeg's in past couple of years and recommended no anticonvulsants i went ahead and d/c'd vimpat though only to follow their request and suggested she follows with her usual neurologist after discharged i will see her prn Subjective Subjective Comments No acute events reported No headache No chest pain No dyspnea Active Medications Current Medications Medications (Trade) Dose Ordered Sig/Maday Route Start Time Stop Time Status Last Admin (NS Flush) 2 ml UNSCH PRN IV FLUSH 08/14/17 12:30 (NS Flush) 2 ml BID IV FLUSH 08/14/17 21:00 08/18/17 09:43 (Tylenol) 650 mg Q4H PRN PO 08/14/17 12:30 (Lovenox Inj) 40 mg Q24H SQ 08/14/17 13:00 08/16/17 13:22 (Narcan Inj) 0.4 mg UNSCH PRN IV PUSH 08/14/17 12:30 (Helen-Colace) 1 tab BID PO 08/14/17 21:00 08/17/17 08:47 (Milk Of Magnesia Liq) 30 ml Q12H PRN PO 08/14/17 12:30 (Senokot) 17.2 mg Q12H PRN PO 08/14/17 12:30 (Dulcolax Supp) 10 mg DAILY PRN RECTAL 08/14/17 12:30 (Lactulose Liq) 30 ml DAILY PRN PO 08/14/17 12:30 Amiodarone HCl 450 mg/Sodium Chloride 250 ml @ 33.33 mls/ hr Q7H31M PRN IV 08/14/17 15:30 (Tigan Inj) 200 mg Q6H PRN IM 08/15/17 20:30 08/16/17 20:15 Lactated Ringer's 1,000 ml @ 30 mls/hr Q24H PRN IV 08/16/17 06:45 08/19/17 06:44 (Betadine 5% Antisepsis Kit) 1 applic RESEARCH AND DEVELOPMENT TECHNICIAN PRN EACH NARE 08/16/17 06:45 08/19/17 06:44 (Chlorhexidine 2% Cloth) 3 pack RESEARCH AND DEVELOPMENT TECHNICIAN PRN TOPICAL 08/16/17 06:45 08/19/17 06:44 Potassium Chloride 40 meq/ Sodium Chloride 520 ml @ 100 mls/hr Q5H12M IV 08/17/17 13:00 08/17/17 13:00 (Percocet 5-325 Mg) 1 tab Q4H PRN PO 08/17/17 19:15 Future Hold (Percocet 5-325 Mg) 2 tab Q4H PRN PO 08/17/17 19:15 Future Hold 08/17/17 22:33 (Atropine Inj) 0.5 mg UNSCH PRN IV PUSH 08/17/17 19:15 (Zofran Inj) 4 mg Q4H PRN IV PUSH 08/17/17 19:15 08/17/17 22:37 (Advil) 200 mg Q6H PRN PO 08/18/17 09:15 08/18/17 16:57 Allergies Allergies Coded Allergies No Known Allergies (Unverified08/14/17) Exam I&O / VS 08/18/17 08/18/17 08/19/17 15:00 23:00 07:00 Intake Total 640 ml Balance 640 ml Intake Oral 640 ml # Voids 4 Vital Signs Date Time Temp Pulse Resp B/P (MAP) Pulse Ox O2 Delivery O2 Flow Rate FiO2 08/18/17 17:20 98 21 08/18/17 11:00 60 08/18/17 10:08 98 08/18/17 10:00 62 08/18/17 09:00 60 08/18/17 09:00 99 Room Air 08/18/17 08:00 98.3 52 20 129/90 (103) 99 08/18/17 08:00 52 08/18/17 07:00 52 08/18/17 04:00 75 08/18/17 04:00 97.8 75 18 109/67 (81) 98 08/18/17 00:00 78 08/18/17 00:00 98.1 78 18 125/83 (97) 98 08/17/17 23:33 18 Objective Micro and Labs Laboratory Tests Test 08/18/17 04:51 White Blood Count 10.5 Red Blood Count 4.19 Hemoglobin 13.0 Hematocrit 38.3 Mean Corpuscular Volume 91.3 Mean Corpuscular Hemoglobin 31.0 Mean Corpuscular Hemoglobin Concent 34.0 Red Cell Distribution Width 13.5 Platelet Count 311 Mean Platelet Volume 7.8 Neutrophils (%) (Auto) 87.7 Lymphocytes (%) (Auto) 8.8 Monocytes (%) (Auto) 2.9 Eosinophils (%) (Auto) 0.0 Basophils (%) (Auto) 0.6 Neutrophils # (Auto) 9.2 Lymphocytes # (Auto) 0.9 Monocytes # (Auto) 0.3 Eosinophils # (Auto) 0.0 Basophils # (Auto) 0.1 CBC Comment DIFF FINAL Differential Comment Blood Urea Nitrogen 9 Creatinine 0.71 Random Glucose 92 Calcium Level 8.5 Phosphorus Level 3.3 Magnesium Level 2.2 Sodium Level 139 Potassium Level 3.9 Chloride Level 108 Carbon Dioxide Level 22.7 Anion Gap 8 Estimat Glomerular Filtration Rate 96 Karla Munoz MD Aug 18, 2017 20:18
[2017-08-19] VITALS: BP 117/72; PULSE 72; RESP 20; TEMP 98.5; O2SAT 98
--- NOTE | 2017-08-19 00:42 | EKG ---
Date Performed: 08/17/2017 Time Performed: 22:08:43 PTAGE: 31 years EKG: Sinus rhythm WITH SHORT [place] INTERVAL BORDERLINE ECG PREVIOUS TRACING : 08/17/2017 09.27 Since the prior tracing, there has been no significant francois DOCTOR: Sunday Rodriguez Interpretating Date/Time 08/19/2017 00:41:11
[2017-08-19] MEDS: POTASSIUM CHLORIDE INJ 40 MEQ in SODIUM CHLORID 0.9% 500 ML INJ 500 ML IV SCH (01:39)
[2017-08-19 03:00] VITALS: BP 119/80; PULSE 76; RESP 20; TEMP 98.8; O2SAT 97
[2017-08-19 06:07] LABS: HEMATOCRIT 34.1 % (35.0-46.0); HEMOGLOBIN 11.6 GM/DL (11.6-15.3); MEAN CELL VOLUME 90.7 FL (80.0-100.0); MEAN CORPUSCULAR HGB CONC 34.1 % (32.0-36.0); MEAN PLATELET VOLUME 7.1 FL (7.0-11.0); PLATELET COUNT 291 TH/MM3 (150-450); RED BLOOD COUNT 3.76 MIL/MM3 (4.00-5.30); RED CELL DISTRIBUTION WIDTH 13.1 % (11.6-17.2); WHITE BLOOD COUNT 8.5 TH/MM3 (4.0-11.0)
[2017-08-19 06:43] LABS: BICARBONATE 24.4 MEQ/L (21.0-32.0); CALCIUM 8.1 MG/DL (8.5-10.1); CREATININE 0.63 MG/DL (0.50-1.00); PHOSPHORUS 2.9 MG/DL (2.5-4.9)
[2017-08-19 08:00] VITALS: BP 127/69; PULSE 63; RESP 17; TEMP 98.6; O2SAT 100
[2017-08-19] MEDS: IBUPROFEN 200 MG TAB PO PRN (09:35)
[2017-08-19] MEDS ORDERED: METOCLOPRAMIDE HCL 10 MG/2 ML VIAL ONE (11:24)
[2017-08-19 14:15] VITALS: O2SAT 97
--- NOTE | 2017-08-19 14:23 | RADRPT ---
EXAM DATE/TIME: 08/19/2017 10:32 [place] COMPARISON: No previous studies available for comparison. INDICATIONS : Nausea and abdominal pain. DOSE: 1.1 mCi Tc99m Sulfur Colloid Labeled Whole egg PO MEDICATONS: 1.) 5 mg Reglan IV at 90 minutes IMAGIN minutes. MEDICAL HISTORY : Gastroesophageal reflux disease. SURGICAL HISTORY : section. ENCOUNTER: Initial ACUITY: 1 day PAIN SCALE: 3/10 LOCATION: Bilateral Abdomen. TECHNIQUE: Following the oral ingestion of radiotracer-labeled meal, dynamic sequential images in the [place] projec tion were acquired with simultaneous computer acquisition. The data set was decay-corrected. FINDINGS: LAG PHASE: There is a 5 minutes before onset of gastric emptying. EMPTYING: Gastric emptying kinetics are linear. The decay-corrected, back-extrapolated half-time of emptying i s 53 minutes. (Normal for this lab is 45- 90 minutes.) INTERVENTION: There was no response to Reglan. CONCLUSION: 1. Normal gastric emptying with T. one half of 53 minutes. 2. No response to Reglan. Saw Mcgill MD on August 19, 2017 at 14:19 Board Certified Radiologist. This report was verified electronically.
[2017-08-19 15:00] VITALS: BP 127/86; PULSE 67; RESP 16; TEMP 98.4; O2SAT 98
--- NOTE | 2017-08-19 16:32 | HHI.GIFU ---
Subjective Remarks Patient was seen and examined, sitting in chair, anxious to know the result of the gastric emptying study and to go home, questioning if she has problem with celiac disease Objective Vitals I&O Vital Signs Date Time Temp Pulse Resp B/P (MAP) Pulse Ox O2 Delivery O2 Flow Rate FiO2 08/19/17 14:15 97 08/19/17 03:00 98.8 76 20 119/80 (93) 97 08/19/17 00:00 98.5 72 20 117/72 (87) 98 08/18/17 19:00 98.7 88 20 116/72 (87) 98 08/18/17 19:00 98 Room Air 08/18/17 17:20 98 21 I/O 08/18/17 08/18/17 08/18/17 08/19/17 08/19/17 08/19/17 07:00 15:00 23:00 07:00 15:00 23:00 Intake Total 240 ml 640 ml 240 ml Balance 240 ml 640 ml 240 ml Intake Oral 240 ml 640 ml 240 ml # Voids 2 4 4 # Bowel Movements 1 1 Laboratory Laboratory Tests Test 08/19/17 05:53 White Blood Count 8.5 Red Blood Count 3.76 Hemoglobin 11.6 Hematocrit 34.1 Mean Corpuscular Volume 90.7 Mean Corpuscular Hemoglobin 31.0 Mean Corpuscular Hemoglobin Concent 34.1 Red Cell Distribution Width 13.1 Platelet Count 291 Mean Platelet Volume 7.1 Blood Urea Nitrogen 11 Creatinine 0.63 Random Glucose 80 Calcium Level 8.1 Phosphorus Level 2.9 Magnesium Level 2.0 Sodium Level 143 Potassium Level 4.7 Chloride Level 112 Carbon Dioxide Level 24.4 Anion Gap 7 Estimat Glomerular Filtration Rate 110 Physical Exam HEENT: PERRL; normocephalic; atraumatic; no jaundice CHEST: CTA CARDIAC: RRR ABDOMEN: Soft, nondistended, nontender; no hepatosplenomegaly; bowel sounds are present in all four quadrants. EXTREMITIES: No clubbing, cyanosis, or edema. SKIN: Normal; no rash; no jaundice. RENEWALS SPECIALIST: No focal deficits; alert and oriented times three. Assessment and Plan Assessment: (1) Intractable nausea and vomiting ICD Codes: R11.2 - Nausea with vomiting, unspecified Plan 08/17/17 31 yo female with n/v, epigastric pain, unclear etiology. s/p EGD 1/28/ 18 that was normal, bx are pending. could be cyclic vomiting. pt regular user marijuana. Today n/v improved, cites lingering epigastric tenderness/soreness. - leukocytosis - mild elevation 13.9 08/18/17 n/v improved, abd pain improving, tolerating diet. GES tomorrow 08/19/2017 no nausea or vomiting tolerating diet still minimal discomfort in the midepigastric area, gastric emptying study completely normal, PLAN - We will check celiac disease panel - naresh cessation - supportive care Okay to be discharged from GI ankle follow-up as an outpatient Simran Khanna MD Aug 19, 2017 16:32
== END 2017-08-19 17:08 | disposition left against medical advice (07) | DRG 274 ==
LOC: NEDDLT 11:49 → HIMN 13:22 → HCIS 08-15 16:08
PROVIDERS: ADMIT Hospitalist; ATTEND Hospitalist
PROC: 0DB78ZX Excision of Stomach, Pylorus, Via Natural or Artificial Opening Endoscopic, Diagnostic (ICD-10-PCS; 2017-08-16)
PROC: 02583ZZ Destruction of Conduction Mechanism, Percutaneous Approach (ICD-10-PCS; principal; 2017-08-17)
PROC: 4A023FZ Measurement of Cardiac Rhythm, Percutaneous Approach (ICD-10-PCS; 2017-08-17)
PROC: 4A0234Z Measurement of Cardiac Electrical Activity, Percutaneous Approach (ICD-10-PCS; 2017-08-17)
DX: I47.2 Ventricular tachycardia (principal); E87.2 Acidosis; R65.10 Systemic inflammatory response syndrome (SIRS) of non-infectious origin without acute organ dysfunction; K56.7 Ileus, unspecified; T40.7X1A Poisoning by cannabis (derivatives), accidental (unintentional), initial encounter; E86.0 Dehydration; F12.288 Cannabis dependence with other cannabis-induced disorder; K31.89 Other diseases of stomach and duodenum; R11.10 Vomiting, unspecified; R00.2 Palpitations; F12.20 Cannabis dependence, uncomplicated; F17.210 Nicotine dependence, cigarettes, uncomplicated; R55 Syncope and collapse; F41.9 Anxiety disorder, unspecified; K21.9 Gastro-esophageal reflux disease without esophagitis; Z82.3 Family history of stroke; Z82.49 Family history of ischemic heart disease and other diseases of the circulatory system
CPT/HCPCS: 70450; 70553; 71045; 74177; 76937; 78264; 80048; 80053; 80307; 81001; 82140; 82550; 83605; 83690; 83735; 84100; 84443; 84484; 84702; 84703; 85025; 85027; 85610; 85730; 87040; 87086; 87804; 88305; 88312; 93005; 93306; 93620; 93623; 95819; 96361; 96365; 96366; 96375; A9541; A9579; C1730; J0282; J1100; J1170; J1644; J1650; J2060; J2250; J2405; J2543; J2765; J3010; J3250; J3370; J3475; J3480; J7030; J7040; J7050; Q9967